=== PATIENT | female | born 1980 | race Caucasian/White ===

== ENCOUNTER 2021-03-31 15:22 | Outpatient (REF) | payer OTHER, SELFPAY ==
--- NOTE | ~2021-03-31 | MM_ITS ---
EXAMINATION: MM SCREENING DIGITAL BREAST TOMOSYNTHESIS, BILATERAL CLINICAL INFORMATION: Screening. Asymptomatic. The lifetime risk of breast cancer based on the Tyrer-Cuzick Model is 13%. COMPARISON: Mammography: 02/13/2020, 12/06/2018 (baseline) TECHNIQUE: Digital breast tomosynthesis is performed in both the craniocaudal and mediolateral oblique views along with computer-aided detection (CAD). Synthesized 2D images are generated from the tomosynthesis. FINDINGS: There are scattered areas of fibroglandular density (ACR BI-RADS breast composition Category b). There are no significant masses, abnormal calcifications, or other abnormalities. Parenchymal pattern is similar to prior studies. The axilla and skin contours are unremarkable. No significant changes. MM/MM tomosynthesis screening BI IMPRESSION: No mammographic evidence of malignancy. ASSESSMENT: BI-RADS 1: Negative RECOMMENDATION: Routine annual mammography screening. This patient's information was entered into a reminder system with a target due date for their next mammogram.
== END 2021-03-31 15:23 | disposition home or self-care (01) ==
LOC: HO.MAMMO 15:22
PROVIDERS: Visit Provider Pediatrics
DX: Z12.31 Encounter for screening mammogram for malignant neoplasm of breast (principal)
CPT/HCPCS: 77063; 77067

== ENCOUNTER 2021-08-29 14:22 | Outpatient (REF) | payer OTHER, SELFPAY ==
[2021-09-01 16:55] LABS: HPV mRNA E6/E7 rflx Not Detected (Not Detected)
== END 2021-08-29 14:23 | disposition home or self-care (01) ==
LOC: HO.LAB 14:22
PROVIDERS: PCP Pediatrics; Visit Provider Obstetrics & Gynecology
DX: Z01.419 Encounter for gynecological examination (general) (routine) without abnormal findings (principal); Z11.51 Encounter for screening for human papillomavirus (HPV)
CPT/HCPCS: 87624; 88142

== ENCOUNTER 2022-04-14 15:18 | Outpatient (REF) | payer OTHER, SELFPAY ==
--- NOTE | ~2022-04-14 | MM_ITS ---
EXAMINATION: MM SCREENING DIGITAL BREAST TOMOSYNTHESIS, BILATERAL CLINICAL INFORMATION: Screening. Asymptomatic. The lifetime risk of breast cancer based on the Tyrer-Cuzick Model is 13%. COMPARISON: Mammography: 03/31/2021 and studies dating back to 12/06/2018. TECHNIQUE: Digital breast tomosynthesis is performed in both the craniocaudal and mediolateral oblique views along with computer-aided detection (CAD). Synthesized 2D images are generated from the tomosynthesis. FINDINGS: The breasts are heterogeneously dense, which may obscure small masses (ACR BI-RADS breast composition Category c). There are no new significant masses, abnormal calcifications, or other abnormalities. About the anterior aspect of the left breast superiorly, there is a circumscribed density with some slight lobulation on craniocaudal view. This may possibly represent intramammary lymph node. However, mass or other etiology is not excluded and ultrasound evaluation of the left breast is recommended. MM/MM tomosynthesis screening BI IMPRESSION: New circumscribed density anterior-superior aspect of the left breast for which ultrasound is recommended. ASSESSMENT: BI-RADS 0: Incomplete - Need Additional Imaging Evaluation. RECOMMENDATION: Targeted ultrasound examination of the left breast.
== END 2022-04-14 15:19 | disposition home or self-care (01) ==
LOC: HO.MAMMO 15:18
PROVIDERS: Absent Provider Obstetrics & Gynecology; PCP Internal Medicine; Visit Provider Internal Medicine
DX: Z12.31 Encounter for screening mammogram for malignant neoplasm of breast (principal)
CPT/HCPCS: 77063; 77067

== ENCOUNTER 2022-05-05 14:19 | Outpatient (REF) | payer OTHER, SELFPAY ==
--- NOTE | ~2022-05-05 | US_ITS ---
EXAMINATION: US DIAGNOSTIC ULTRASOUND BREAST, LEFT CLINICAL INFORMATION: Recall from screening for small oval circumscribed nodule anterior upper left breast. COMPARISON: Mammography 04/14/2022, 03/31/2021, 02/13/2020. TECHNIQUE: Ultrasound of the upper left breast is performed with real-time ambrocio scale imaging and color Doppler. FINDINGS: There is incidental oval circumscribed nodule 11:00 position corresponding to finding on mammography measuring approximately 0.8 x 0.3 cm. There is fine avascular internal septation. Increased through-transmission of sound is demonstrated and no associated color flow. Results are discussed with the patient at time of visit. US/US breast LT limited IMPRESSION: Incidental cyst anterior upper left breast under 1 cm corresponding to recent mammography. ASSESSMENT: BI-RADS 2: Benign RECOMMENDATION: Routine annual mammography screening. This patient's information was entered into a reminder system with a target due date for their next mammogram.
== END 2022-05-05 14:20 | disposition home or self-care (01) ==
LOC: HO.MAMMO 14:19
PROVIDERS: PCP Internal Medicine; Visit Provider Internal Medicine
DX: R92.2 Inconclusive mammogram (principal)
CPT/HCPCS: 76642

== ENCOUNTER → 2022-09-04 14:30 | Outpatient (BNVA) | payer OTHER, SELFPAY | PROVIDERS: PCP Internal Medicine; Visit Provider Obstetrics & Gynecology | DX: Z13.89 Encounter for screening for other disorder (principal) ==

== ENCOUNTER 2022-09-21 15:06 | Outpatient (REF) | payer OTHER, SELFPAY | END 2022-09-21 15:07 | disposition home or self-care (01) | LOC: HO.LNP 15:06 | PROVIDERS: PCP Internal Medicine; Visit Provider Obstetrics & Gynecology | DX: Z13.89 Encounter for screening for other disorder (principal) ==

== ENCOUNTER 2022-09-22 07:49 | Outpatient (REF) | payer OTHER, SELFPAY ==
--- NOTE | ~2022-09-22 | US_ITS ---
EXAMINATION: US OBSTETRICAL ULTRASOUND CLINICAL INFORMATION: Spotting complicating . COMPARISON: None. LMP: 08/05/2022. Gestational age by maternal dates is 6 weeks 6 days. Estimated date of delivery by maternal dates is 05/12/2023. TECHNIQUE: Ultrasound of the maternal pelvis is performed using transabdominal and transvaginal transducers. Transvaginal imaging is performed due to inadequate visualization transabdominally. M-mode Doppler is also performed. FINDINGS: There is a single intrauterine gestational sac seen. There is no associated pole or yolk sac. No subchorionic hematoma or hemorrhage. There are multiple uterine fibroids identified, measuring up to 1.9 x 0.8 x 1.3 cm and the right uterine body. There is a calcification measuring 0.9 cm noted along the endometrium at the uterine body. Mean sac diameter: 0.875 cm (5 weeks 4 days +/- 4 days). MATERNAL ADNEXA: The right maternal ovary measures 2.4 x 1.4 x 1.5 cm. The left maternal ovary measures 3.1 x 1.6 x 2.3 cm. 1.5 cm corpus luteal cyst noted. There is no significant maternal adnexal mass. No maternal pelvic ascites. US/US OB pelvic and transvaginal IMPRESSION: Intrauterine gestational sac with no pole or yolk sac. Mean sac diameter corresponds to a gestational age of 5 weeks 4 days. This appearance could be secondary to the early stage of , though demise/blighted ovum is possible. Close follow-up recommended.
[2022-09-22 09:47] LABS: HCG Quantitative 1041 mIU/mL
== END 2022-09-22 07:50 | disposition home or self-care (01) ==
LOC: HO.US 07:49
PROVIDERS: PCP Internal Medicine; Visit Provider Obstetrics & Gynecology
DX: O26.851 Spotting complicating pregnancy, first trimester (principal)
CPT/HCPCS: 36415; 76801; 76817; 84702; 86850; 86900

== ENCOUNTER 2022-09-22 12:28 | Outpatient (REF) | payer OTHER, SELFPAY ==
[2022-09-22 14:18] LABS: CT PCR NOT DETECTED (Not Detect.); NG PCR NOT DETECTED (Not Detect.)
== END 2022-09-22 12:29 | disposition home or self-care (01) ==
LOC: HO.LNP 12:28
PROVIDERS: Visit Provider Obstetrics & Gynecology
DX: O26.851 Spotting complicating pregnancy, first trimester (principal)
CPT/HCPCS: 0353U

== ENCOUNTER 2022-09-24 09:16 | Outpatient (REF) | payer OTHER, SELFPAY ==
[2022-09-24 10:00] LABS: HCG Quantitative 896 mIU/mL
== END 2022-09-24 09:17 | disposition home or self-care (01) ==
LOC: HO.LAB 09:16
PROVIDERS: Visit Provider Obstetrics & Gynecology
DX: O26.851 Spotting complicating pregnancy, first trimester (principal); O09.521 Supervision of elderly multigravida, first trimester
CPT/HCPCS: 36415; 84702

== ENCOUNTER 2022-09-26 07:52 | Outpatient (REF) | payer OTHER, SELFPAY ==
[2022-09-26 09:13] LABS: HCG Quantitative 464 mIU/mL
== END 2022-09-26 07:53 | disposition home or self-care (01) ==
LOC: HO.LAB 07:52
PROVIDERS: PCP Internal Medicine; Visit Provider Obstetrics & Gynecology
DX: O26.851 Spotting complicating pregnancy, first trimester (principal)
CPT/HCPCS: 36415; 84702

== ENCOUNTER 2022-09-28 07:58 | Outpatient (REF) | payer OTHER, SELFPAY ==
--- NOTE | ~2022-09-28 | US_ITS ---
EXAMINATION: US OBSTETRICAL CLINICAL INFORMATION: Complete or unspecified spontaneous without complication. COMPARISON: None. LMP: 08/05/2022. Gestational age by maternal dates is unknown. Estimated date of delivery by maternal dates is unknown. TECHNIQUE: Transabdominal and transvaginal imaging of pelvis is performed. FINDINGS: The uterus is anteverted and anteflexed measuring 9.2 cm in length, 5.0 cm in AP and 7.3 cm in transverse dimension. Endometrial thickness is 0.9 cm. Scattered calcifications seen within the endometrium measuring 0.6 x 0.6 x 0.7 cm. Minimal fluid seen within the endometrial canal. There are multiple hypoechoic areas consistent with fibroids. They measure as follows: 1. Right anterior 1.2 x 1.1 x 1.6 cm. Previously measured 1.2 x 1.1 x 1.6 cm. 2. Lesion in the posterior upper body of uterus measures 1.3 x 1.4 x 1.3 cm. Previously measured 1.9 x 0.8 x 1.3 cm. 3. Lesion in the left mid body of uterus measures 1.5 x 1.2 x 1.4 cm. Previously measured 1.5 x 1.1 x 1.5 cm. 4. Lesion in the left lower body of uterus measures 1.1 x 0.8 x 1.0 cm. Previously it measured 1.4 x 1.3 x 1.5 cm. The right ovary measures 2.1 x 1.2 x 1.5 cm and volume 2.0 mL. It appears unremarkable. Previously the right ovary measured 2.4 x 1.4 x 1.5 cm. Left ovary measures 2.7 x 1.9 x 1.8 cm and volume 4.8 mL. There is anechoic corpus luteal cyst measuring 1.3 x 1.3 x 1.20 cm. There is a small amount of free fluid in cul-de-sac. US/US OB pelvic and transvaginal IMPRESSION: Multiple uterine fibroids as described above with no major change. Likely corpus luteal cyst left ovary. The right ovary is unremarkable. There is minimal fluid and calcifications in the endometrium.
[2022-09-28 08:53] LABS: HCG Quantitative 91 mIU/mL
== END 2022-09-28 07:59 | disposition home or self-care (01) ==
LOC: HO.US 07:58
PROVIDERS: PCP Internal Medicine; Visit Provider Obstetrics & Gynecology
DX: O03.9 Complete or unspecified spontaneous abortion without complication (principal)
CPT/HCPCS: 36415; 76801; 76817; 84702

== ENCOUNTER 2022-10-10 07:46 | Outpatient (REF) | payer OTHER, SELFPAY ==
[2022-10-10 08:06] LABS: MANUAL DIFF FLAG NO
[2022-10-10 09:20] LABS: Basophils Percent Auto 0.3 % (0-2); Eosinophils Absolute Auto 0.2 X10*3/uL (0.0-0.4); Eosinophils Percent Auto 2.7 % (0-4); Hematocrit 42.8 % (37.0-47.0); Hemoglobin 14.1 g/dl (12.0-16.0); Imm Gran Abs Auto 0.02 X10*3/uL (0.00-0.03); Imm Gran Pct Auto 0.3 % (0.0-0.4); Lymphocytes Absolute Auto 1.8 X10*3/uL (1.2-4.9); Lymphocytes Percent Auto 26.7 % (20-40); Mean Corpuscular HGB Conc 32.9 g/dl (31.0-35.0); Mean Corpuscular Hemoglobin 29.9 pg (27.0-33.0); Mean Corpuscular Volume 90.9 fL (80.0-98.0); Mean Platelet Volume 9.2 fL (9.4-12.3); Monocytes Absolute Auto 0.5 X10*3/uL (0.1-1.2); Monocytes Percent Auto 7.4 % (2-11); Neutrophils Absolute Auto 4.2 x10*3/uL (2.0-8.3); Neutrophils Percent Auto 62.6 % (45-73); Platelet Count 452 X10*3/uL (160-400); Red Blood Count 4.71 X10*6/uL (4.20-5.50); Red Cell Distribution Width 12.5 % (11.0-16.0); White Blood Count 6.7 X10*3/uL (4.8-10.8)
[2022-10-10 10:20] LABS: HCG Quantitative < 2 mIU/mL
[2022-10-10 10:24] LABS: Alanine Aminotransferase 16 U/L (0-31); Albumin Level 3.8 g/dL (3.5-5.0); Alkaline Phosphatase 87 U/L (39-117); Anion Gap 13 (12-20); Aspartate Amino Transferase 17 U/L (5-31); Bilirubin Total 0.6 mg/dL (0.0-1.0); Blood Urea Nitrogen 10 mg/dL (9-16); Calcium 9.2 mg/dL (8.4-10.2); Carbon Dioxide 23 mmol/L (22-29); Chloride 109 mmol/L (96-108); Cholesterol 196 mg/dL; Estimated Glomerular Filt Rate > 60; Glucose Fasting 89 mg/dL (60-99); HDL Cholesterol 59 mg/dL; LDL Cholesterol Calculated 125 mg/dl; Potassium 5.3 mmol/L (3.3-5.1); Sodium 140 mmol/L (135-145); Total Protein 6.7 g/dL (6.5-8.0); Triglycerides 63 mg/dL
[2022-10-10 10:45] LABS: Thyroid Stimulating Hormone 1.49 uIU/mL (0.32-4.0)
== END 2022-10-10 07:47 | disposition home or self-care (01) ==
LOC: HO.LAB 07:46
PROVIDERS: PCP Internal Medicine; Visit Provider Obstetrics & Gynecology
DX: O03.9 Complete or unspecified spontaneous abortion without complication (principal); E78.5 Hyperlipidemia, unspecified; D25.9 Leiomyoma of uterus, unspecified; E66.01 Morbid (severe) obesity due to excess calories
CPT/HCPCS: 36415; 80053; 80061; 84443; 84702; 85025

== ENCOUNTER 2022-10-27 08:05 | Outpatient (REF) | payer OTHER, SELFPAY ==
[2022-10-27 09:34] LABS: Alanine Aminotransferase 15 U/L (0-31); Albumin Level 3.9 g/dL (3.5-5.0); Alkaline Phosphatase 86 U/L (39-117); Anion Gap 12 (12-20); Aspartate Amino Transferase 16 U/L (5-31); Bilirubin Total 0.5 mg/dL (0.0-1.0); Blood Urea Nitrogen 10 mg/dL (9-16); Calcium 9.1 mg/dL (8.4-10.2); Carbon Dioxide 23 mmol/L (22-29); Chloride 107 mmol/L (96-108); Estimated Glomerular Filt Rate > 60; Glucose Random 103 mg/dL (60-115); Potassium 4.7 mmol/L (3.3-5.1); Sodium 137 mmol/L (135-145); Total Protein 6.9 g/dL (6.5-8.0)
== END 2022-10-27 08:06 | disposition home or self-care (01) ==
LOC: HO.LAB 08:05
PROVIDERS: PCP Internal Medicine; Visit Provider Internal Medicine
DX: E87.5 Hyperkalemia (principal)
CPT/HCPCS: 36415; 80053

== ENCOUNTER 2023-05-14 16:03 | Outpatient (REF) | payer OTHER, SELFPAY ==
--- NOTE | ~2023-05-14 | MM_ITS ---
EXAMINATION: MM SCREENING DIGITAL BREAST TOMOSYNTHESIS, BILATERAL CLINICAL INFORMATION: Screening. Asymptomatic. COMPARISON: Mammography: 04/14/2022, 03/31/2021, 02/13/2020. TECHNIQUE: Digital breast tomosynthesis is performed in both the craniocaudal and mediolateral oblique views along with computer-aided detection (CAD). Synthesized 2D images are generated from the tomosynthesis. FINDINGS: There are scattered areas of fibroglandular density (ACR BI-RADS breast composition Category b). There are no suspicious masses, suspicious grouped calcifications, or areas of architectural distortion in either breast. The parenchymal pattern is stable from prior exams. There are no skin changes. There are no axillary changes. MM/MM tomosynthesis screening BI IMPRESSION: No mammographic evidence of malignancy. ASSESSMENT: BI-RADS BI-RADS 1 - Negative RECOMMENDATION: Routine annual mammography screening. 1 year F/U This examination should not preclude the clinical evaluation of a suspicious palpable abnormality. This patient's information was entered into a reminder system with a target due date for their next mammogram.
== END 2023-05-14 16:04 | disposition home or self-care (01) ==
LOC: HO.MAMMO 16:03
PROVIDERS: PCP Internal Medicine; Visit Provider Internal Medicine
DX: Z12.31 Encounter for screening mammogram for malignant neoplasm of breast (principal)
CPT/HCPCS: 77063; 77067

== ENCOUNTER → 2023-05-14 16:15 | Outpatient (BNV) | payer OTHER, SELFPAY | PROVIDERS: PCP Internal Medicine; Visit Provider Radiology Diagnostic Radiology | DX: Z12.31 Encounter for screening mammogram for malignant neoplasm of breast (principal) | CPT/HCPCS: 77063; 77067 ==

== ENCOUNTER 2023-07-30 14:35 | Outpatient (REF) | payer OTHER, SELFPAY ==
--- NOTE | ~2023-07-30 | US_ITS ---
EXAMINATION: US OBSTETRICAL ULTRASOUND CLINICAL INFORMATION: Encounter for supervision of normal . COMPARISON: None available. LMP: 06/10/2023. Gestational age by maternal dates is 7 weeks and 1 day. Estimated date of delivery by maternal dates is 03/16/2024. TECHNIQUE: Transabdominal and transvaginal imaging of pelvis is performed. FINDINGS: There is a single intrauterine gestational sac with visible yolk sac, embryo/fetus, and cardiac activity. There is no significant subchorionic hemorrhage or hematoma. HR: 147 beats per minute. CRL (crown rump length): 1.22 cm (7 weeks and 3 days +/- 4 days). NAZIA (estimated date of delivery): 03/14/2024 +/- 4 days. MATERNAL ADNEXA: The right maternal ovary measures 3.3 x 2.3 x 2.8 cm. There is anechoic corpus luteal cyst measuring 1.4 x 1.3 x 1.5 cm. The left maternal ovary measures 2.4 x 1.7 x 1.7 cm. There is no significant maternal adnexal mass. There is a trace free fluid in the cervix. US/US OB <= 14 weeks fetus IMPRESSION: 1. Single intrauterine gestation with ultrasound gestational age of 7 weeks and 3 days +/- 4 days. 2. Estimated date of delivery is 03/14/2024 +/- 4 days. 3. There is a trace free fluid in the cervix
[2023-07-30 15:33] LABS: HCG Quantitative 87666 mIU/mL
== END 2023-07-30 14:36 | disposition home or self-care (01) ==
LOC: HO.US 14:35
PROVIDERS: PCP Internal Medicine; Visit Provider Obstetrics & Gynecology
DX: Z34.91 Encounter for supervision of normal pregnancy, unspecified, first trimester (principal); Z3A.01 Less than 8 weeks gestation of pregnancy
CPT/HCPCS: 36415; 76801; 84702

== ENCOUNTER 2023-07-31 09:37 | Outpatient (AMB) | payer OTHER, SELFPAY ==
[2023-07-31 10:01] VITALS: BP 136/80; BMI 39.9
--- NOTE | 2023-07-31 10:01 | A.OFFVIS_ITS ---
Intake Vital Signs 07/31/23 10:01 Height 5 ft 5 in Weight 240 lb BMI 39.9 BP 136/80 Intake Visit Reasons: HCG follow up Business Account Specialist Required: No Information Interpreted: non-clinical & clinical Lining Cleaner: Lining Cleaner Present (Kary) Allergies No Known Allergies Allergy (Verified 07/31/23 10:02) Post menopausal: No Patient : Yes HPI HPI Comments History of Present Illness Details Presenting for follow-up. The patient had a positive urine test few weeks ago and had an episode of bleeding 2 days ago that resolved. On vitamin 1 tablet p.o. q.d. Yesterday. HCG 87,666, blood type O positive ultrasound done yesterday showed the following: There is a single intrauterine gestational sac with visible yolk sac, embryo/fetus, and cardiac activity. There is no significant subchorionic hemorrhage or hematoma. HR: 147 beats per minute. CRL (crown rump length): 1.22 cm (7 weeks and 3 days +/- 4 days). NAZIA (estimated date of delivery): 03/14/2024 +/- 4 days. MATERNAL ADNEXA: The right maternal ovary measures 3.3 x 2.3 x 2.8 cm. There is anechoic corpus luteal cyst measuring 1.4 x 1.3 x 1.5 cm. The left maternal ovary measures 2.4 x 1.7 x 1.7 cm. There is no significant maternal adnexal mass. There is a trace free fluid in the cervix. [facility] Surgical History History of dental surgery Family History Mother Endometrial cancer Diabetes Father Diabetes Hypertension Social History Housing: House Alcohol intake: current Alcohol intake frequency: holidays/special occasions only Alcohol type: wine and other Patient Tobacco Use Status: Never used Tobacco e-Cigarette/Vaping Use: Never Used Second Hand Smoke Exposure: No Patient : Yes service: No Current occupational status: employed Current occupational exposures/hazards: No Cognitive needs: No Hearing needs: No Vision needs: Yes Female Reproductive History Menstrual Age of Menarche: 10 control method: none Review of Systems Const All systems reviewed & are unremarkable except as noted in HPI and below Reports as per HPI and Reports no additional complaints GI Reports no additional complaints Reports no additional complaints Physical Exam Vital Signs: Last Vital Signs BP 136/80 07/31/23 10:01 BMI result Body Mass Index 39.9 General: Yes no CVA tenderness External Female Exam: normal external appearance and normal appearance of the urethra Speculum Exam - Vagina: normal appearance of the vagina, normal palpation, no lesions and no masses Speculum Exam - Cervix: normal appearance of the cervix, normal palpation, no lesions, no masses and nontender Bimanual exam- vagina & uterus: normal bimanual exam, normal palpation, uterine size normal, normal palpation, uterine shape normal, No Cervical tenderness present and non-tender Bimanual Exam- Adnexa, other: normal adnexae Back/Spine/Pelvis Back: no CVA tenderness Assessment & Plan Assessment & Plan (1) Early stage of : Code(s): Z34.90 - Encounter for supervision of normal , unspecified, unspecified trimester Plan: Discussed with the patient the results of ultrasound and hCG. SAB warnings given to patient, she is to call or go to emergency room in case of pelvic aircraft engineer mping and or bleeding/spotting. vitamin 1 tablet p.o. q.d. Instructions given patient to keep her appointment [facility] OBGYN given high- risk status. All questions answered, the patient verbalized understanding. Coding Level of Care Code Est Pt Level 3 (18739) Diagnoses Early stage of Z34.90
== END 2023-07-31 10:48 | disposition home or self-care (01) ==
LOC: HO.HWS 09:37
PROVIDERS: PCP Internal Medicine; Visit Provider Obstetrics & Gynecology
DX: Z34.90 Encounter for supervision of normal pregnancy, unspecified, unspecified trimester (principal)
CPT/HCPCS: 99213

== ENCOUNTER 2023-07-31 09:37 | Outpatient (REF) | payer OTHER, SELFPAY ==
[2023-07-31 17:34] LABS: CT PCR NOT DETECTED (Not Detect.); NG PCR NOT DETECTED (Not Detect.)
== END 2023-07-31 09:38 | disposition home or self-care (01) ==
LOC: HO.LNP 09:37
PROVIDERS: PCP Internal Medicine; Visit Provider Obstetrics & Gynecology
DX: O26.851 Spotting complicating pregnancy, first trimester (principal); Z20.2 Contact with and (suspected) exposure to infections with a predominantly sexual mode of transmission
CPT/HCPCS: 0353U

== ENCOUNTER 2023-12-17 14:22 | Outpatient (AMB) | payer OTHER, SELFPAY ==
--- NOTE | 2023-12-17 14:23 | MHC.OFFVIS ---
Vital Signs 12/17/23 14:24 Height 5 ft 5 in Weight 246 lb BMI 40.9 BP 114/70 Intake Visit Reasons: Annual Access Analyst: Access Analyst Present (Kenia) Allergies No Known Allergies Allergy (Verified 12/17/23 14:24) Is last menstrual period known: Yes Last menstrual period: 11/29/23 HPI Comments Details: Presenting for annual exam. No complaints. Last Pap/HPV was negative in 09/17 Last Mammogram was BI-RADS 1 in 05/19 No previous screening mammogram PFS Surgical History History of dental surgery Family History Mother Endometrial cancer Diabetes Father Diabetes Hypertension Maternal Grandmother Colon cancer Social History Housing: House Alcohol intake: current Alcohol intake frequency: holidays/special occasions only Alcohol type: wine and other Patient Tobacco Use Status: Never used Tobacco e-Cigarette/Vaping Use: Never Used Second Hand Smoke Exposure: No service: No Current occupational status: employed Current occupational exposures/hazards: No Cognitive needs: No Hearing needs: No Vision needs: Yes Female Reproductive History Menstrual Age of Menarche: 10 Duration of menses: 6-7 days Date of last menstrual period: 11/29/23 Total pregnancies: 2 Number of Living Children: 0 Ab spontaneous: 2 Date of last pap smear: 08/29/21 (neg pap and hpv) Date of Mammogram: 05/14/23 Review of Systems Const All systems reviewed & are unremarkable except as noted in HPI and below Card Reports as per HPI Resp Reports as per HPI GI Reports as per HPI and Reports no additional complaints Reports as per HPI Physical Exam Vital Signs: Last Vital Signs BP 114/70 12/17/23 14:24 BMI result Body Mass Index 40.9 Const General: cooperative, healthy appearing and comfortable Chest Chest palpation & inspection: normal inspection of the chest and normal palpation of entire chest wall Breast/axilla inspection: normal inspection of the breasts and normal inspection of the axillae Breast/axilla palpation: normal palpation of the breasts, normal palpation of the axillae and no axillary lymphadenopathy Resp Effort & Inspection: normal respiratory effort Auscultation: clear to auscultation bilaterally Percussion: percussion normal Cardio Palpation: normal PMI Rate: regular rate Rhythm: regular rhythm Heart sounds: no murmurs and no rubs Peripheral pulses: Peripheral pulses 2+ throughout GI Inspection: Yes normal to inspection Palpation (GI): Soft to palpation, nontender, no guarding, not rigid and No hepatosplenomegaly present Percussion: Yes normal to percussion Auscultation: normal bowel sounds Rectal Exam - Female: deferred General: Yes bladder normal to palpation External Female Exam: No lesion Speculum Exam - Vagina: normal appearance of the vagina, normal palpation, normal vaginal discharge and not erythematous Speculum Exam - Cervix: normal appearance of the cervix and normal palpation Bimanual exam- vagina & uterus: normal bimanual exam, normal palpation, uterine size normal, bladder normal to palpation, consistency normal and normal palpation Bimanual Exam- Adnexa, other: normal adnexae, no masses and no tenderness Assessment & Plan Assessment & Plan (1) Well woman exam: Code(s): Z01.419 - Encounter for gynecological examination (general) (routine) without abnormal findings Category: Medical Plan: Cotesting not indicated this year. Instructions given the patient to schedule next screening Mammogram in 05/20. Counseled the patient about the recommended dietary allowance of 1000 mg of Calcium & 600 IU of vitamin D. The patient was instructed to perform monthly self-breast exams and to schedule an annual exam in a year; All questions answered and the patient verbalized understanding. Instructed the patient to schedule annual exam in a year Orders: Referrals Gastroenterology Referral Z12.11 - Encounter for screening for malignant neoplasm of colon
[2023-12-17 14:24] VITALS: BP 114/70; BMI 40.9
--- OUTSIDE RECORDS SUMMARY | 2023-12-17 14:24 | XMS_ITS | Continuity of Care Document ---
Author Organization [facility] Address [address] [place] [id number]- Care Team Providers Care Hydrostatic Tester Name Role Phone Not on Staff, PCP Primary Care Physician Unavail able Encounter [facility] Date(s): 07/18/23 - 08/17/[address] [address]- Allergies, Adverse Reactions, Alerts No Known Allergies Immunizations Given and Recorded Vaccine Date Status Refusal Reason Flu Vaccine 06/20/23 Recorded SARS-CoV-2 (COVID-19) mRNA BNT-162b2 vac 07/15/21 Recorded SARS-CoV-2 (COVID-19) mRNA BNT-162b2 vac 09/04/20 Recorded SARS-CoV-2 (COVID-19) mRNA BNT-162b2 vac 08/14/20 Recorded Medications PNV By Mouth, Daily, 0 Refills, Maintenance, 08/06/23 10:45:00 EST, Partial fill upon patient request if the prescription is for a schedule II opioid drug. Start Date: 08/06/23 Status: Ordered Social History Social History Type Response Smoking Status Never (less than 100 in lifetime) entered on: 08/06/23 Sex Patient Care team information Care Team Personnel Name: Not on Staff, PCP Position: [facility] Physician (General Medicine) Member Role: PCP
--- OUTSIDE RECORDS SUMMARY | 2023-12-17 14:24 | XMS_ITS | Continuity of Care Document ---
Author Organization [facility] Address [address] [place] [id number]- Care Team Providers Care Cable Tower Operator Name Role Phone Not on Staff, PCP Primary Care Physician Unavail able Encounter [facility] [place] Date(s): 09/20/23 - 10/20/[address] [address]- Allergies, Adverse Reactions, Alerts No Known Allergies Immunizations Given and Recorded Vaccine Date Status Refusal Reason Flu Vaccine 06/20/23 Recorded SARS-CoV-2 (COVID-19) mRNA BNT-162b2 vac 07/15/21 Recorded SARS-CoV-2 (COVID-19) mRNA BNT-162b2 vac 09/04/20 Recorded SARS-CoV-2 (COVID-19) mRNA BNT-162b2 vac 08/14/20 Recorded Medications miSOPROStol 200 mcg oral tablet See Instructions, place 2 tabs between cheek and gums on EACH side, let dissolve for 30min then swallow the rest with water, # 4 tablet, 1 Refills, Maintenance, 08/31/23 3:21:00 EST, [facility], Partial fill upon patient request if the prescription... Start Date: 08/31/23 Status: Ordered PNV By Mouth, Daily, 0 Refills, Maintenance, 08/06/23 10:45:00 EST, Partial fill upon patient request if the prescription is for a schedule II opioid drug. Start Date: 08/06/23 Status: Ordered Social History Social History Type Response Smoking Status Never (less than 100 in lifetime) entered on: 08/06/23 Sex Patient Care team information Care Team Personnel Name: Not on Staff, PCP Position: S Physician (General Medicine) Member Role: PCP Care Team Related Persons Name: MIRELA CRONIN Address: home [address] [place] [address]
--- OUTSIDE RECORDS SUMMARY | 2023-12-17 14:24 | XMS_ITS | Continuity of Care Document ---
Author Organization [facility] Address [address] [place] [id number]- Care Team Providers Care Javascript Web Developer Name Role Phone Not on Staff, PCP Primary Care Physician Unavail able Encounter [facility] [place] Date(s): 08/10/23 - 09/09/[address] [address]- Allergies, Adverse Reactions, Alerts No Known Allergies [...] tablet, 1 Refills, Maintenance, 08/31/23 3:21:00 EST, [facility], Partial fill upon patient request if [...] Related Persons Name: MIRELA CRONIN Address: home [address] [place] [id number]
--- OUTSIDE RECORDS SUMMARY | 2023-12-17 14:24 | XMS_ITS | Continuity of Care Document ---
Author Organization [facility] Address [address] [place] [id number]- Care Team Providers Care Hat Checker Name Role Phone Not on Staff, PCP Primary Care Physician Unavail able Encounter [facility] [place] Date(s): 09/26/23 - 10/26/[address] [address]- Attending Physician: Lj Herzog Admitting Physician: AdmtrLj Referring Physician: Admtr, Ar8 Allergies, Adverse Reactions, Alerts No Known Allergies [...] tablet, 1 Refills, Maintenance, 08/31/23 3:21:00 EST, [facility] Pharm[facility], Partial fill upon patient request if [...] Role: PCP Care Team Related Persons Name: ROSEANNE MIRELA Address: [address] [address]
--- OUTSIDE RECORDS SUMMARY | 2023-12-17 14:24 | XMS_ITS | Continuity of Care Document ---
Author Organization [facility] ter Address [address] [place] [id number] Care Team Providers Care Physical Science Technician Name Role Phone Not on Staff, PCP Primary Care Physician Unavail able Encounter [facility] Date(s): 08/30/23 - 08/31/[address] [address] Discharge Disposition: A-D/C Home Attending Physician: Roddy SRTEETER [OB], Ioana Lopez Admitting Physician: Roddy STREETER [OB], Ioana Lopez Referring Physician: Roddy STREETER [OB], Ioana Lopez Allergies, Adverse Reactions, Alerts No Known Allergies Immunizations Given and Recorded Vaccine Date Status Refusal Reason Flu Vaccine 06/20/23 Recorded SARS-CoV-2 (COVID-19) mRNA BNT-162b2 vac 07/15/21 Recorded SARS-CoV-2 (COVID-19) mRNA BNT-162b2 vac 09/04/20 Recorded SARS-CoV-2 (COVID-19) mRNA BNT-162b2 vac 08/14/20 Recorded Medications ibuprofen 800 mg oral tablet 800 mg, 1, tablet, By Mouth, Every 8 hours, for 7 days, # 50 tablet, Refills 0, Tot. Refills 0, Acute 09/07/23 3:21:00 EST, 08/31/23 3:21:00 EST, Route to Pharmacy Electronically, [facility], Partial fill upon patient request if the prescription is... Start Date: 08/31/23 Stop Date: 09/07/23 Status: Ordered miSOPROStol 200 mcg oral tablet See Instructions, place 2 tabs between cheek and gums on EACH side, let dissolve for 30min then swallow the rest with water, # 4 tablet, 1 Refills, Maintenance, 08/31/23 3:21:00 EST, [facility], Partial fill upon patient request if the prescription... Start Date: 08/31/23 Status: Ordered ondansetron 4 mg oral tablet 1 tablet = 4 mg, By Mouth, Every 8 hours, for 3 days, # 12 tablet, 0 Refills, Acute 09/03/23 3:21:00 EST, 08/31/23 3:21:00 EST, Tablet, [facility], Partial fill upon patient request if the prescription is for a schedule II opioid drug., 163, cm, ... Start Date: 08/31/23 Stop Date: 09/03/23 Status: Ordered PNV By Mouth, Daily, 0 Refills, Maintenance, 08/06/23 10:45:00 EST, Partial fill upon patient request if the prescription is for a schedule II opioid drug. Start Date: 08/06/23 Status: Ordered Results Radiology Reports * Exam Date Time Procedure Performing Provider Status 08/30/23 10:31 PM US Uterus Transvaginal Lion Ptaterson; Auth (Verified) Notes: (US Uterus Transvaginal) Reason For Exam: ?SAB;Bleeding RESULT: US Uterus Transvaginal US Transabd 1st Trimester Only, US Uterus Transvaginal Reason: Bleeding; ?SAB; Clinical Question(s): Demise; Order Comment: US Uterus Transvaginal Prep COMPARISON: None available. TECHNIQUE: Transabdominal and transvaginal ultrasound with grayscale and color Doppler analysis. FINDINGS: Last menstrual period (LMP): 06/10/2023. Gestational age (GA) by LMP: 11w4d. UTERUS AND GESTATIONAL STRUCTURES: An irregular shaped gestational sac is seen in the endometrial cavity measuring 6.2 x 3.4 x 3.8 cm.It is located in the lower uterine segment. [place]-rump length (CRL): 1.6 cm. Ultrasound age of 8w0d. No heart rate or cardiac activity isidentified. Uterus: 14.2 x 6.3 x 8.2 cm, volume 381.8 cc. There is a 2.9 x 2.3 x 2.6 cm intramural fibroid in the posterior uterine body. No abnormalities of the cervix. Cervix is not dilated. RIGHT OVARY: Size: 2.4 x 1.6 x 2.0 cm, volume 4.1 cc. Morphology: Normal echotexture. No pathologic cysts or mass. Normal color Doppler appearance. LEFT OVARY: Size: 2.2 x 1.4 x 2.5 cm, volume 3.9 cc. Morphology: Normal echotexture. No pathologic cysts or mass. Normal color Doppler appearance. FREE FLUID: None. IMPRESSION: 1. Findings consistent with demise with irregular shaped gestational sac located in the endometrial cavity in the lower uterine segment. 2. A 2.9 cm uterine fibroid. The impression above was relayed to Yolanda Mahoney CNM by Dr. Aggie Mcginnis via [employer] with acknowledgement received on 08/30/2023 at 10:35 PM. WSN: [id number] Ordering Physician: Yolanda Mahoney Dictated By: Aggie Mcginnis MD Dictated Date/Time: 08/30/23 10:38 p Reviewed By: Aggie Mcginnis MD Signed By: Aggie Mcginnis MD Signed Date/Time: 08/30/23 10:38 pm Transcribed By: MARLIN Transcribed Date/Time: 08/30/23 10:28 pm * Exam Date Time Procedure Performing Provider Status 08/30/23 10:31 PM US Transab d 1st Trimester Only Lion Martin; Auth (Verified) Notes: (US Transabd 1st Trimester Only) Reason For Exam: ?SAB;Bleeding RESULT: US Transabd 1st Trimester Only US Transabd 1st Trimester Only, US Uterus Transvaginal Reason: Bleeding; ?SAB; Clinical Question(s): Demise; Order Comment: US Uterus Transvaginal Prep COMPARISON: None available. TECHNIQUE: Transabdominal and transvaginal ultrasound with grayscale and color Doppler analysis. FINDINGS: Last menstrual period (LMP): 06/10/2023. Gestational age (GA) by LMP: 11w4d. UTERUS AND GESTATIONAL STRUCTURES: An irregular shaped gestational sac is seen in the endometrial cavity measuring 6.2 x 3.4 x 3.8 cm.It is located in the lower uterine segment. [place]-rump length (CRL): 1.6 cm. Ultrasound age of 8w0d. No heart rate or cardiac activity isidentified. Uterus: 14.2 x 6.3 x 8.2 cm, volume 381.8 cc. There is a 2.9 x 2.3 x 2.6 cm intramural fibroid in the posterior uterine body. No abnormalities of the cervix. Cervix is not dilated. RIGHT OVARY: Size: 2.4 x 1.6 x 2.0 cm, volume 4.1 cc. Morphology: Normal echotexture. No pathologic cysts or mass. Normal color Doppler appearance. LEFT OVARY: Size: 2.2 x 1.4 x 2.5 cm, volume 3.9 cc. Morphology: Normal echotexture. No pathologic cysts or mass. Normal color Doppler appearance. FREE FLUID: None. IMPRESSION: 1. Findings consistent with demise with irregular shaped gestational sac located in the endometrial cavity in the lower uterine segment. 2. A 2.9 cm uterine fibroid. The impression above was relayed to Yolanda Mahoney CNM by Dr. Aggie Mcginnis via [employer] with acknowledgement received on 08/30/2023 at 10:35 PM. WSN: [id number] Ordering Physician: Yolanda Mahoney Dictated By: Aggie Mcginnis MD Dictated Date/Time: 08/30/23 10:38 p Reviewed By: Aggie Mcginnis MD Signed By: Aggie Mcginnis MD Signed Date/Time: 08/30/23 10:38 pm Transcribed By: MARLIN Transcribed Date/Time: 08/30/23 10:28 pm Vital Signs Most recent to oldest [Reference Range]: 1 2 Weight 111.2 kg (08/30/23 11:30 PM) Oxygen Saturation [94-100 %] 100 % (08/30/23 7:25 PM) Blood Pressure [90-138/55-84 mm Hg] 142/ 82mm Hg *H* (08/30/23 7:25 PM) Respiratory Rate [16-30 br/min] 20 br/mi n (08/30/23 7:25 PM) Temperature [96.8-100.4 DegF] 98.2 DegF (08/30/23 7:25 PM) Temperature Route Oral (08/30/23 7:25 PM) Dry Weight 111.2 kg (08/30/23 11:30 PM) 111.5 kg (08/30/23 7:25 PM) Weight Obtained Via Standing scale (08/30/23 11:30 PM) Dry Weight Obtained Via Standing scale (08/30/23 11:30 PM) Standing scale (08/30/23 7:25 PM) Social History Social History Type Response Smoking Status Never (less than 100 in lifetime) entered on: 08/06/23 Sex Note * Chanell Zepeda RN: PERFORM Event Display: Discharge/Transfer Note Hospital Authored Date: [id number] Nursing Discharge Note Entered On: 08/31/2023 5:22 EST Performed On: 08/31/2023 5:22 EST by Chanell Zepeda RN Nursing Discharge Note 2 Discharge Time : 08/31/2023 5:22 EST Discharge Level of Care at Discharge : Home/Prison/Foster Care Patient Left Unit Via : Ambulatory Patient Accompanied Off Unit with : Significant other DC Instructions Provided & Signed by Pt : Yes Patient Understands D/C Instructions : Yes Patient Instructions Discharge Signed : Yes Did Pt have Specialty Bed or Wound Vac : No Chanell Zepeda RN - 08/31/2023 5:22 EST * Event Display: Discharge/Transfer Note Hospital Authored Date: [id number] * Chanell Zepeda RN: PERFORM Event Display: Patient Education/Instruction Authored Date: [id number] Inpatient Adult Discharge Instructions [address] [id number] Name: VAUGHN CRONIN : 1980 Visit: 08/30/2023 18:51:00 Current Date: 08/31/2023 05:16 Account: [id number] Inpatient Adult Discharge Instructions We would like to thank you for allowing us to assist you with your healthcare needs. The following includes patient education materials and information regarding your injury/illness. Our entire staffstrives to provide an excellent experience for our patients and their families. PLEASE ENSURE YOU FOLLOW-UP PER THE INSTRUCTIONS BELOW! ?? YOUR OPINION IS IMPORTANT TO US! Please complete the survey you may receive by mail or email. Your feedback will be used to make improvements to the healthcare experiences of our patients and their families. Surveys are administered by [employer] ?? If further treatment with your primary care physician or another doctor is recommended, it is important for you to keep the appointment. Call your primary care physician or return to the Emergency Department immediately if your condition worsens, fails to improve, or new symptoms develop. If you need to find a doctor, you can call [facility] Link for a referral at [phone] or toll free at [phone]) or log in to [email or web address].. ?? [facility], in keeping with [facility] guidance, no longer requires face masks for staff, patientsor visitors in most situations. Similiar to time spent indoors at other locations, there is the chance that you were exposed to repiratory viruses during your time with us (such as flu or COVID-19). If you develop symptoms concerning for a viral respiratory infection, please seek testing (and treatment if indicated) from your medical provider or home test kit. ?? You can view and manage your care through the patient portal or by using a health care jill of your choosing. [facility] is a website that allows you to securely view your medical information including your hospital discharge summary, office visit summaries, medications and follow-up visits. You can also request appointments, renew medications, and request access to your medical information using a health care jill of your choosing, or just ask a question. You can enroll at [email or web address] or register during your next office visit. You have been discharged from [facility], Patient Care Unit: [id number]. If you have any questions regarding these instructions after you leave, please call us and we will be happy to assist you. [facility] Your Care Team Attending Physician Roddy STREETER [OB], Ioana Lopez Your Diagnosis 11 weeks gestation of First trimester bleeding Tests Performed Below is a partial list of the tests performed during your hospitalization. You may have had other tests and procedures not included in this list. Please discuss all test results with your provider. US Transabd 1st Trimester Only US Uterus Transvaginal Primary Care Provider Not on Staff, PCP Advance Directive Health Care Proxy on File No Discharge Vitals Temperature: 98.2 DegF Weight: 111.2 kg Respiratory Rate: 20 br/min ?? Systolic Blood Pressure:??142 mm Hg??High ?? Diastolic Blood Pressure: 82 mm Hg ?? Oxygen Saturation: 100 % ?? Studies Pending All tests and labs ordered during this hospital stay have been completed unless listed below. Please discuss all pending results with your provider listed above in these instructions. ?? No incomplete studies found What to do next Instructions From Your Doctor Discharge Orders You Need to Schedule the Following Appointments Follow Up with??[facility] [phone] Discharge Medications VAUGHN CRONIN :1980 Visit Date:08/30/2023 Medications: Please continue your medications until treatment is completed or stopped by your provider. Medications not listed below should be discontinued. Discuss any questions related to medications with your provider. What How Much When Instructions Next Dose New Ibuprofen (ibuprofen 800 mg oral tablet) 1 tab(s) Oral Every 8 hours Duration: 7 Days Pickup at [facility] New Misoprostol (miSOPROStol 200 mcg oral tablet) See instructions Refills: 1 place 2 tabs between cheek and gums on EACH side, let dissolve for 30min then swallow the rest withwater ?? Pickup at [facility] New Ondansetron (ondansetron 4 mg oral tablet) 1 tab(s) Oral Every 8 hours Duration: 3 Days Pickup at [facility] Unchanged Multivitamin, (PNV ) Oral Daily Pharmacy Information [facility] Pharmacy: [address] [place] [address] [phone] Test Results Below is a partial list of the most recent Laboratory test results done prior to this discharge. You may have had other tests and procedures not included in this list. Please discuss all test resultswith your provider. Allergies (NKA means No Known Allergies) NKA Problems Active Problems??(1) ?? Education Materials Below is the list of Educational Leaflet Providered with your Discharge Instructions. Understanding Miscarriage: Recovery?? Understanding Miscarriage: Possible Causes?? Understanding Miscarriage: Emotions?? Understanding Miscarriage: Trying Again?? Missed Miscarriage?? Valuables and Belongings I fully understand and agree that [facility] accepts no responsibility for all my personal property including clothing, toilet articles, radios, jewelry, dentures, hearing aids, rings, money, or any other property that is in my possession or is brought to me after admission. I understand certain valuables may be placed in a hospital safe for a short period of time. I understand that the hospital is not liable for loss or damage due to accident, fire, or other natural occurrence while said property is in the safe. I accept full responsibility for any personal property that I keep with me, and will not hold the hospital responsible in case of loss or disappearance. I acknowledge that i have been encouraged to send valuables and belongings home. ? Other Discharge Information ? Pulmonary Rehab Status?? Pulmonary Rehab Discharge Status?? Respiratory Rate: 20 br/min ? Common Emergency Awareness Tips IS IT A STROKE? Act FAST and Check for these signs: FACE Does the face look uneven? ARM Does one arm drift down? SPEECH Does their speech sound strange? TIME Call at any sign of stroke ?? Heart Attack Signs Chest discomfort: Most heart attacks involve discomfort in the center of the chest and lasts more than a few minutes, or goes away and comes back. It can feel like uncomfortable pressure, squeezing, fullness or pain. Discomfort in upper body: Symptoms can include pain or discomfort in one or both arms, back, neck, jaw or stomach. Shortness of breath: With or without discomfort. Other signs: Breaking out in a cold sweat, nausea, or lightheaded. Remember, MINUTES DO MATTER. If you experience any of these heart attack warning signs, call to get immediate medical attention! ?? Smoking can increase your chances of developing chronic health problems and can cause harmful effects to other family members in your house. If you smoke, you are strongly encouraged to quit. Please call [email or web address] Link at [phone] or [phone] ([phone]) or log in to [email or web address] for referrals to smoking cessation programs. ?? 695 Suicide & Crisis Lifeline is available 19/03 if you or someone you know needs to find a reason to keep living. By calling 519 you'll be connected to a skilled, trained counselor at a crisis center in your area. INPATIENT DISCHARGE INSTRUCTIONS SIGNATURE PAGE VAUGHN CRONIN Location:[facility] Registration Date and Time:08/30/2023 18:51 EST Primary Care Physician: Not on Staff, PCP Attending Physician: Roddy STREETER [OB], Ioana Lopez, I VAUGHN CRONIN, have received the above patient education materials/instructions and have verbalized understanding. If ambulance or transport services are being used I further acknowledge being given a choice of service. ?? If you need to contact me, please call me at this number: . Patient/Cardboard Cutter Name: Patient/Cardboard Cutter Signature: Relationship to Patient: Witness Name/Signature: Date: * Chanell Zepeda RN: PERFORM, SIGN, VERIFY Event Display: Patient Education Handout Authored Date: [id number] * Chanell Zepeda RN: PERFORM Event Display: Patient Education Leaflets Authored Date: [id number] Understanding Miscarriage: Recovery ?? 71782 Understanding Miscarriage: Recovery Your body has had a shock to its system. Because of this, you may not feel well for a few days. Your body is going through changes, and you can expect mood swings. When you are ready, start back to your normal routine. Mood swings The miscarriage has caused a sudden drop in your hormone levels. This is likely to produce mood swings or make your emotions even more extreme. Stress and lack of sleep can also affect your moods. Asyour body returns to normal, these mood swings should lessen. ?? Returning to your daily routines You are the best administrative law judge of how you feel. Do only as much as you feel up to. Also be sure to follow your healthcare provider???s directions. Keep the following in mind: ??? Return to work or your dailyroutines when you feel ready. This might be right away, or you may want to wait a few days. ??? Take showers instead of tub baths. This helps prevent infection. Your??healthcare provider will tell you when you can take baths again. ??? Don't do strenuous exercise, such as aerobics or running, untilthe bleeding slows to the rate of a normal period. ??? Wait to have sex, and don???t use tampons until your??healthcare provider says it's OK. ??? Do not douche. ?? Finding support Recognize your need to talk. Ask for support when you want it. And accept help when it???s offered.Although sharing thoughts with your partner is vital, you may also feel like talking with other family members or friends. ?? Look nearby The real experts on miscarriage are the women who have gone through it. Because miscarriage is so common, it???s likely that someone close to you has had one. You may begin to see that you???re not alone in experiencing such a loss. ?? Other sources of support Many women find it easier to talk to people who are not family or friends. If this is true for you,try contacting the following: ??? Share: and Infant Loss Support at www.nationalshare.org??? Resolve Through Sharing at www.bereavementservices.org ??? Loss Support Program at www .pregnancyloss.org ?? When to call the healthcare provider It???s normal to be sad for a while. You may even feel sad until you???re again. Be sure to call your??healthcare provider if either of the following occur: ??? You continue to have no interest in eating or are not able to sleep. ??? Your depression does not decrease. Or you get more upset. ?? Last Reviewed Date: 2022 ?? [employer]. All rights reserved. This information is not intended as a substitute for professional medical care. Always follow your healthcare professional's instructions. ?? * Chanell Zepeda RN: PERFORM Event Display: Patient Education Leaflets Authored Date: [id number] Understanding Miscarriage: Possible Causes ?? 07520 Understanding Miscarriage: Possible Causes Miscarriage is common, but finding its cause may not be easy. If a cause can be found, it???s likely to be a problem with the baby or the uterus or cervix. Other factors cause miscarriage, but they're less common. Problems with the baby Either of these problems with the baby can cause a miscarriage: ??? A problem with the baby???s chromosomes ??? defects ?? Problems with the uterus or cervix Any of these problems with the uterus or cervix can cause a miscarriage: ??? The uterus may be divided (have a septum). Or it may have growths such as fibroids or adhesions. ??? The lining of the uterus may be too thin for the fertilized egg to grow in. ??? The cervix may be too weak to support theweight of a growing baby. ?? Other factors Any of these problems can cause a miscarriage: ??? A serious illness, such as uncontrolled diabetes.? A bad injury, such as from a car accident. ??? Contact with toxins or radiation. ?? What does not cause miscarriage? A lot of myths and old wives??? tales try to explain the cause of miscarriage. But they aren't true. None of these causes miscarriage: ??? Carrying groceries ??? Lifting a small child ??? Wearing high heels ??? Coloring your hair ??? Having sex ??? Vacuuming ??? Working outside the home ??? Being a vegetarian ??? Eating spicy foods ??? Having a Pap test ??? Riding a horse or a bicycle ??? Wishing away or denying a ?? Last Reviewed Date: 2022 ?? [employer]. All rights reserved. This information is not intended as a substitute for professional medical care. Always follow your healthcare professional's instructions. ?? * Chanell Zepeda RN: PERFORM Event Display: Patient Education Leaflets Authored Date: [id number] Understanding Miscarriage: Emotions ?? 21849 Understanding Miscarriage: Emotions Miscarriage is the unplanned end of a before 20 weeks.??When a miscarriage happens, you???re likely to have a wide range of feelings. Let yourself accept how you feel. Only then can you begin to move on. No one is to blame Know that you did not cause this to happen. Miscarriage is very common. There is a 15% chance of miscarriage with each (after has been diagnosed). Miscarriage usually takes place during the first 10 weeks after conception. ?? Grief takes many forms Grief may be the first thing you feel, or it may happen to you later. You may grieve because the future you hoped for feels lost. Grief is painful and often lonely. But??a miscarriage is often easierto deal with over time. ?? What you feel is OK No one can tell you how to respond to your miscarriage. If you've been trying to have a child, thisloss may feel overwhelming. Perhaps this was an unplanned . That doesn???t mean you won???t feel loss. You know yourself best. It???s??OK to feel whatever you feel. ?? A sense of loss No matter what you thought about being , having a miscarriage may cause a sense of loss. You may feel as if something is missing. It???s OK if you can???t describe how you feel. At first, it may be enough just to sit with and feel your emotions. ?? A note for partners Partners grieve, too. You may be feeling sad, helpless, or frustrated. When you???re struggling with your own feelings, knowing how to help your partner may be hard. But do your best to provide support. It can help to: ??? Be kind to yourself and your partner. ??? Spend time together. ??? Fix a meal or bring dinner home. ??? Rent a movie. ??? If you have children, spend extra time with them. ?? Last Reviewed Date: 2022 ?? 9928-4351 [employer]. All rights reserved. This information is not intended as a substitute for professional medical care. Always follow your healthcare professional's instructions. ?? Patient Care team information Care Team Personnel Name: Not on Staff, PCP Position: [facility] Physician (General Medicine) Member Role: PCP Name: Chanell eZpeda RN Position: [facility] OB RN Member Role: OB RN Care Team Related Persons Name: MIRELA CRONIN Address: [place] [address]
--- OUTSIDE RECORDS SUMMARY | 2023-12-17 14:24 | XMS_ITS | Continuity of Care Document ---
Author Organization [facility] Address [address] [place] [id number]- Care Team Providers Care Elementary Art Teacher Name Role Phone Not on Staff, PCP Primary Care Physician Unavail able [facility]counter [facility] [place]): 08/30/23 - 10/05/[address] [address]- Attending Physician: Not on Staff, Attending MD Referring Physician: Ana ASTUDILLO, JUMP IRON MACHINE PRESSER, [place] Allergies, Adverse Reactions, Alerts No Known Allergies [...] tablet, 1 Refills, Maintenance, 08/31/23 3:21:00 EST, [facility], Partial fill upon patient request if [...] Personnel Name: Not on Staff, PCP Position: [facility] Physician (General Medicine) Member Role: PCP Care Team Related Persons Name: CHI CRONINJULIET Address: [address] [address]
== END 2023-12-17 14:53 | disposition home or self-care (01) ==
LOC: HO.HWS 14:22
PROVIDERS: PCP Internal Medicine; Visit Provider Obstetrics & Gynecology
DX: Z01.419 Encounter for gynecological examination (general) (routine) without abnormal findings (principal)
CPT/HCPCS: 99396

== ENCOUNTER → 2023-12-17 14:22 | Outpatient (BNVA) | payer OTHER, SELFPAY | PROVIDERS: PCP Internal Medicine; Visit Provider Obstetrics & Gynecology ==

== ENCOUNTER 2024-02-23 09:34 | Outpatient (REF) | payer OTHER, SELFPAY ==
[2024-02-23 11:00] LABS: Alanine Aminotransferase 13 U/L (0-31); Albumin Level 3.9 g/dL (3.5-5.0); Alkaline Phosphatase 92 U/L (39-117); Anion Gap 15 (12-20); Aspartate Amino Transferase 15 U/L (5-31); Bilirubin Total 0.3 mg/dL (0.0-1.0); Blood Urea Nitrogen 10 mg/dL (9-16); Calcium 9.7 mg/dL (8.4-10.2); Carbon Dioxide 25 mmol/L (22-29); Chloride 109 mmol/L (96-108); Cholesterol 195 mg/dL (<200); Estimated Glomerular Filt Rate > 60; Glucose Fasting 91 mg/dL (60-99); HDL Cholesterol 55 mg/dL (>40); LDL Cholesterol Calculated 122 mg/dL (<100); Potassium 4.9 mmol/L (3.3-5.1); Sodium 144 mmol/L (135-145); Total Protein 7.4 g/dL (6.5-8.0); Triglycerides 90 mg/dL (<150)
== END 2024-02-23 09:35 | disposition home or self-care (01) ==
LOC: HO.LAB 09:34
PROVIDERS: PCP Internal Medicine; Visit Provider Internal Medicine
DX: Z00.00 Encounter for general adult medical examination without abnormal findings (principal); E78.5 Hyperlipidemia, unspecified
CPT/HCPCS: 36415; 80053; 80061

== ENCOUNTER 2024-02-26 17:16 | Outpatient (AMB) | payer OTHER, SELFPAY ==
--- NOTE | 2024-02-26 17:20 | A.OFFPC_ITS ---
Vital Signs 02/26/24 17:23 Height 5 ft 5 in Weight 251 lb 2 oz BMI 41.8 BP 140/86 H Blood Pressure Location Lt brachial Position Sitting Pulse 88 Pulse Source Pulse Oximeter Pulse Oximetry (%) 99 Oxygen Delivery Method Room Air Intake Visit Reasons: Physical Exam Intake Note: Patient is here today for a physical. 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 Accompanied by: Self / Same As Patient Allergies No Known Allergies Allergy (Verified 02/26/24 17:31) Medication List - Last Reconciled 02/26/24 by Maryan Murillo MD prenat.vits,mimi,jlh-[id number]-[id number] 1 tab PO DAILY Tobacco use date assessed: 02/26/24 Dental Screening Dental Screen Date: 02/26/24 Did you have a dental visit in the last 12 months?: Yes Did you have a dental problem in the last 6 months where you did not have access to dental care?: No Was dental information given to patient?: Patient has dentist HPI HPI Comments History of Present Illness Details This is a 43 year old female with morbid obesity that comes for her physical exam. Mammogram done 2023 was normal. Pap smear done 2021 was normal. She has appt for colonoscopy screening this year. No chest pain or shortness o f breath. She is moridly obese and declines weight loss surgery. [facility] Surgical History History of dental surgery Family History Mother Endometrial cancer Diabetes Father Diabetes Hypertension Maternal Grandmother Colon cancer Social History Housing: House Alcohol intake: current Alcohol intake frequency: holidays/special occasions only Alcohol type: wine and other Patient Tobacco Use Status: Never used Tobacco e-Cigarette/Vaping Use: Never Used Second Hand Smoke Exposure: No service: No Current occupational status: employed Current occupational exposures/hazards: No Cognitive needs: No Hearing needs: No Vision needs: Yes Female Reproductive History Menstrual Age of Menarche: 10 Questionnaire PHQ-9 Over the last 2 weeks, how often have you been bothered by any of the following problems? 1. Little interest or pleasure in doing things: not at all 2. Feeling down, depressed, or hopeless: not at all 3. Trouble falling or staying asleep, or sleeping too much: not at all 4. Feeling tired or having little energy: not at all 5. Poor appetite or overeating: not at all 6. Feeling bad about yourself - or that you are a failure or have let yourself or your family down: not at all 7. Trouble concentrating on things, such as reading the newspaper or watching television: not at all 8. Moving or speaking so slowly that other people could have noticed. Or the opposite - being so fidgety or restless that you have been moving around a lot more than usual: not at all 9. Thoughts that you would be better off or of hurting yourself in some way: not at all Total score: 0 Depression Screening Interpretation: Negative Depression Screening Done: Yes [address]393 - PHQ-9 Billing: Yes Source: Developed by Drs. Aquiles Diehl, Eloisa Serra, Emiliano Staley and colleagues, with an educational thalia from [employer]. Thrive Questionnaire Date Thrive assessed: 02/26/24 I am a: Patient What is your living situation today?: I have a steady place to live Within the past 12 months, did the food you bought not last and you didn't have the money to get more?: Never true Within the past 12 months, did you worry whether your food would run out before you got money to buy more?: Never true Do you have trouble paying for medicines?: No Do you have trouble getting transportation to medical appointments?: No Do you have trouble paying your heating and electricity bill?: No Do you have trouble taking care of your child, family member or friend?: No Do you have trouble with day-to-day activities such as bathing, preparing meals, shopping, managing finances, etc.?: No Are you currently unemployed and looking for a job?: No Are you interested in more education?: No Please select the resources that you would like help with: None Currently or been in a relationship where the following occur: No concerns reported THRIVE Score: 0 AUDIT C Alcohol Use Questionnaire (AUDIT-C) 1. How often do you have a drink containing alcohol?: Monthly or less 2. How many drinks containing alcohol do you have on a typical day when you are drinking?: 1 or 2 3. How often do you have six or more drinks on one occasion?: Never Total Score: 1 Score Reviewed/Action Taken: No SILVIA-7 AMB Questionnaire SILVIA-7 Date SILVIA - 7 assessed: 02/26/24 Feeling nervous, anxious, or on edge: 2 = More than half the days Not being able to stop or control worryin = Several days Worrying too much about different things: 1 = Several days Trouble relaxin = Several days Being so restless that it is hard to sit still: 0 = Not at all Becoming easily annoyed or irritable: 0 = Not at all Feeling afraid as if something awful might happen: 1 = Several days Total SILVIA-7 score (0-4 normal; 5-9 mild; 10-14 moderate; 15-21 severe): 6 Source: Developed by Drs. Aquiles Diehl, Eloisa Serra, Emiliano Staley and colleagues, with an educational thalia from [employer]. SILVIA-7 Assessment Billing SILVIA-7 Assessment Tool: SILVIA-7 Assessment 67541 Review of Systems Const All systems reviewed & are unremarkable except as noted in HPI and below Eyes Reports no additional complaints, Denies change in vision and Denies other visual disturbances Card Denies chest pain at rest, Denies chest pain with activity, Denies edema, Denies irregular heart rhythm, Denies claudication, Denies dyspnea, Denies dyspnea on exertion, Denies orthopnea, Denies paroxysmal nocturnal dyspnea and Denies slow heart rate Resp Denies cough, Denies dyspnea and Denies dyspnea on exertion GI Denies abdominal pain, Denies change in bowel habits, Denies excessive flatus, Denies nausea and Denies vomiting Denies urinary incontinence, Denies urinary hesitancy and Denies urinary urgency Physical exam (Primary Care) Vital Signs: Last Vital Signs Pulse 88 02/26/24 17:23 BP 140/86 H 02/26/24 17:23 Pulse Ox 99 02/26/24 17:23 Oxygen Delivery Method Room Air 02/26/24 17:23 BMI result Body Mass Index 41.8 Tobacco/Smoking Status: Tobacco use Status Tobacco use date assessed 02/26/24 02/26/24 17:30 Patient Tobacco Use Status Never used Tobacco 02/26/24 17:20 e-Cigarette/Vaping Use Never Used 02/26/24 17:20 PHQ-9: PHQ-9 Score PHQ-9: Total score 0 02/26/24 17:37 Depression Screening Interpretation: Negative Thrive Assessment: Date of Thrive Assessment Date Thrive assessed 02/26/24 02/26/24 17:30 Currently or been in a relationship where the following occur: No concerns reported Const Orientation/consciousness: patient oriented x3 HENMT Head: Yes normal to inspection, Yes normocephalic and Yes atraumatic Ears: external ears normal Eyes General: appearance normal, both eyes and all related structures Eyelids: Yes eyelids normal Conjunctivae: conjunctivae normal Neck Neck: Yes normal visual inspection and Yes supple Resp Effort & Inspection: normal respiratory effort Auscultation: clear to auscultation bilaterally Cardio Jugular venous distension: no JVD Rate: regular rate Rhythm: regular rhythm Heart sounds: S1 normal heart sound present and S2 normal heart sound present GI Inspection: Yes normal to inspection Palpation (GI): Soft to palpation and nontender Auscultation: normal bowel sounds Skin General skin exam: no rashes or lesions noted Neuro General: patient oriented x3 and no focal motor deficits Extrem General: Yes full ROM Psych Appearance: grossly normal Assessment and Plan Assessment & Plan (1) Physical exam: Code(s): Z00.00 - Encounter for general adult medical examination without abnormal findings Plan: Repeat in a year. (2) Morbid obesity: Code(s): E66.01 - Morbid (severe) obesity due to excess calories Plan: Start diet and exercise. BMI goal is less than 30. Coding Level of Care Code Est Pt Prev Care 40-64y(51557) Diagnoses Physical exam Z00.00 Morbid obesity E66.01 Additional Codes SILVIA-7 Assessment Billing - SILVIA-7 Assessment Tool: SILVIA-7 Assessment 61483 ([id number]) Time Spent (min) 31
[2024-02-26 17:23] VITALS: BP 140/86; PULSE 88; O2SAT 99; BMI 41.8
== END 2024-02-26 17:48 | disposition home or self-care (01) ==
PROVIDERS: PCP Internal Medicine; Visit Provider Internal Medicine
DX: Z00.00 Encounter for general adult medical examination without abnormal findings (principal); E66.01 Morbid (severe) obesity due to excess calories; Z68.41 Body mass index [BMI] 40.0-44.9, adult
CPT/HCPCS: 99396

== ENCOUNTER 2024-04-15 15:06 | Outpatient (AMB) | payer OTHER, SELFPAY ==
--- NOTE | 2024-04-15 15:11 | A.OFFVIS_ITS ---
Vital Signs 04/15/24 15:25 Height 5 ft 5 in Weight 253 lb 1.451 oz BMI 42.1 BP 138/76 Blood Pressure Location Lt brachial Position Sitting Pulse 92 Intake Visit Reasons: Colonoscopy Screening Intake Note: Marilee presents in office today as a new patient for colonoscopy screening. CC: Patient reports getting loose stools about once a week. Denies other GI symptoms today. Mud Analysis Well Logging Captain Required: No Accompanied by: Self / Same As Patient Allergies No Known Allergies Allergy (Verified 04/15/24 15:29) HPI HPI Colonoscopy Screening: Details: 43-year-old female here for preprocedural meeting to discuss a screening colonoscopy. She is referred by Maryan Chowdhury PMX Morbid obesity Spontaneous Uterine myoma * SURGICAL HISTORY Dental surgery * ALLERGIES: NKDA * [employer] LABS: Laboratory Tests 02/23/24 09:56 Estimated GFR > 60 Total Bilirubin 0.3 AST 15 ALT 13 Alkaline Phosphatase 92 TODAY'S VISIT This is her first colonoscopy Some ongoing loose stools with urgency, but intermittent and for now not life limiting. No upper GI problems. She is naive to anesthesia and sedation. She denies any cardiac or respiratory problems NO ID problems. Her maternal grandmother had a partial colectomy in her late 80's due to cancer, Her father had polyps. [facility] Medical History Well woman exam Physical exam Elevated blood pressure reading without diagnosis of hypertension Spotting in first trimester SAB (spontaneous ) Complete High risk case management patient in first trimester Early stage of Surgical History History of dental surgery Family History Mother Endometrial cancer Diabetes Father Diabetes Hypertension Maternal Grandmother Colon cancer Social History Housing: House Alcohol intake: current Alcohol intake frequency: holidays/special occasions only Alcohol type: wine and other Patient Tobacco Use Status: Never used Tobacco e-Cigarette/Vaping Use: Never Used Second Hand Smoke Exposure: No service: No Current occupational status: employed Current occupational exposures/hazards: No Cognitive needs: No Hearing needs: No Vision needs: Yes Female Reproductive History Menstrual Age of Menarche: 10 Review of Systems Const Denies fatigue, Denies fever(s), Denies night sweats, Denies poor appetite and Denies weight loss ENT Reports Normal hearing present, Denies dental pain, Denies dysphagia, Denies hearing loss, Denies mouth pain, Denies odynophagia, Denies throat swelling, Denies tongue swelling and Reports other (Dentition adequate) Card Reports no additional complaints Resp Reports no additional complaints GI Details: Denies abdominal pain, Denies melena, Denies bloating, Denies hematochezia, Denies constipation, Denies GI cramping, Denies dysphagia, Denies excessive flatus, Denies early satiety, Denies heartburn, Denies diarrhea, Reports loose stools, Denies nausea, Denies odynophagia, Denies vomiting and Denies hematemesis Skin/Breast Denies pruritus, Denies lesions, Denies rash and Denies jaundice Neuro Reports Normal hearing present and Denies Abnormal speech present Endo Denies fatigue Aller/Immun Denies throat swelling and Denies tongue swelling Physical Exam Vital Signs: Last Vital Signs Pulse 92 04/15/24 15:25 BP 138/76 04/15/24 15:25 BMI result Body Mass Index 42.1 Const General: cooperative, no acute distress, well developed and well groomed Nutritional Appearance: well nourished and obese Orientation/consciousness: oriented to person, oriented to place and oriented to time Limitations: No language barrier HEENT Head: Yes normocephalic and Yes atraumatic Eyes General: appearance normal, both eyes and all related structures Pupils: Equal, round and reactive pupils present Neck Neck: Yes normal visual inspection and Yes no lymphadenopathy Thyroid: Thyroid normal Resp Effort & Inspection: normal respiratory effort and able to speak in complete sentences Auscultation: clear to auscultation bilaterally Cardio Rate: regular rate Rhythm: regular rhythm Heart sounds: Normal, physiologic split S2 sound present Peripheral pulses: radial pulses present and posterior tibial pulses present GI Inspection: No distended, No Abdominal panniculus present and Yes obesity Palpation (GI): Soft to palpation, nontender, no guarding, not rigid and No hepatosplenomegaly present Percussion: Yes normal to percussion Auscultation: normal bowel sounds Rectal Exam - Female: deferred Skin General skin exam: no rashes or lesions noted, turgor normal, skin not dry, no jaundice, No spider nevi and no striae Rashes: no rashes Nails: normal Neuro General: oriented to person, oriented to place and oriented to time Cranial nerves: Yes Equal, round and reactive pupils present and Yes Normal hearing present Speech: No Abnormal speech present Extrem General: Yes normal to inspection, No clubbing, No cyanosis and No edema Psych Appearance: grossly normal and well kempt Mental Status: mental status grossly normal Speech and movement: Normal speech and movement present Affect: normal affect Attitude: cooperative Thought process: Normal thought process present and not confabulating Thought content: Normal thought content present Insight: Good insight present (Psych) Judgement: Good judgement present (Psych) Assessment & Plan Assessment & Plan (1) Pre-op examination: Code(s): Z01.818 - Encounter for other preprocedural examination Category: Medical Plan This is her first colonoscopy Some ongoing loose stools with urgency, but intermittent and for now not life limiting. No upper GI problems. She is naive to anesthesia and sedation. She denies any cardiac or respiratory problems NO ID problems. Her maternal grandmother had a partial colectomy in her late 80's due to cancer, Her father had polyps. Orders: Orders Colonoscopy - GI Use Only 04/15/24 Medications: New sodium,potassium,mag sulfates 17.5-3.13-1.6 gram (Suprep Bowel Prep Kit) 480 mL orally; FOR COLONOSCOPY PREP 354 mL 0RF Coding Level of Care Code New Pt Level 3 (75971) Diagnoses Pre-op examination Z01.818
[2024-04-15 15:25] VITALS: BP 138/76; PULSE 92; BMI 42.1
== END 2024-04-15 16:00 | disposition home or self-care (01) ==
PROVIDERS: PCP Internal Medicine; Visit Provider Nurse Practitioner
DX: Z01.818 Encounter for other preprocedural examination (principal); Z12.11 Encounter for screening for malignant neoplasm of colon; Z80.0 Family history of malignant neoplasm of digestive organs; Z83.719 Family history of colon polyps, unspecified
CPT/HCPCS: S0285

== ENCOUNTER → 2024-04-15 15:06 | Outpatient (BNVA) | payer OTHER, SELFPAY | PROVIDERS: PCP Internal Medicine; Visit Provider Nurse Practitioner ==

== ENCOUNTER 2024-05-16 15:49 | Outpatient (REF) | payer OTHER, SELFPAY ==
--- NOTE | ~2024-05-16 | MM_ITS ---
EXAMINATION: MM SCREENING DIGITAL BREAST TOMOSYNTHESIS, BILATERAL CLINICAL INFORMATION: Screening. Asymptomatic. COMPARISON: Mammography: Comparison is made with available priors TECHNIQUE: Digital breast mammography with tomosynthesis is performed in both the craniocaudal and mediolateral oblique views along with computer-aided detection (CAD). FINDINGS: There are scattered areas of fibroglandular density (ACR BI-RADS breast composition Category b). There are no significant masses, abnormal calcifications, or other abnormalities. MM/MM tomosynthesis screening BI IMPRESSION: No mammographic evidence of malignancy. ASSESSMENT: BI-RADS BI-RADS 1 - Negative RECOMMENDATION: Routine annual mammography screening. 1 year F/U This examination should not preclude the clinical evaluation of a suspicious palpable abnormality. This patient's information was entered into a reminder system with a target due date for their next mammogram. Electronically signed by: Merry Watters DO 05/29/2024 08:38 AM EDT
== END 2024-05-16 15:50 | disposition home or self-care (01) ==
LOC: HO.MAMMO 15:49
PROVIDERS: PCP Internal Medicine; Visit Provider Internal Medicine
DX: Z12.31 Encounter for screening mammogram for malignant neoplasm of breast (principal)
CPT/HCPCS: 77063; 77067

== ENCOUNTER → 2024-05-16 16:00 | Outpatient (BNV) | payer OTHER, SELFPAY | PROVIDERS: PCP Internal Medicine; Visit Provider Internal Medicine | DX: Z12.31 Encounter for screening mammogram for malignant neoplasm of breast (principal) | CPT/HCPCS: 77063; 77067 ==

== ENCOUNTER 2024-10-03 07:20 | Day surgery (SDC) | payer OTHER, SELFPAY ==
[2024-10-01 13:38] VITALS: BMI 42.1
--- NOTE | 2024-10-02 10:27 | HO.ANESPROP2 ---
HPI - Anesthesia Eval Consult details Narrative: 44yo F for Colonoscopy PMFSH Active Problems Active Problems: All Active Problems Pre-op examination (Acute) Obesity, Class II, BMI 35-39.9 (Acute) Hyperkalemia (Acute) Uterine myoma (Acute) Morbid obesity (Acute) Past Medical History Medical History Well woman exam Physical exam Elevated blood pressure reading without diagnosis of hypertension Spotting in first trimester SAB (spontaneous ) Complete High risk case management patient in first trimester Early stage of Family History Family History Mother Endometrial cancer Diabetes Father Diabetes Hypertension Maternal Grandmother Colon cancer Surgical History Surgical History History of dental surgery Social History Social History Housing: House Alcohol intake: current Alcohol intake frequency: holidays/special occasions only Alcohol type: wine and other Patient Tobacco Use Status: Never used Tobacco e-Cigarette/Vaping Use: Never Used Second Hand Smoke Exposure: No service: No Current occupational status: employed Current occupational exposures/hazards: No Cognitive needs: No Hearing needs: No Vision needs: Yes Meds Allergies Allergy/AdvReac Type Severity Reaction Status Date / Time No Known Allergies Allergy Verified 04/15/24 15:29 Exam Height,Weight and Vital Signs: Height 5 ft 5 in Weight 114.759 kg Assessment and Plan Assessment Anesthesia Assessment: Chart Reviewed
[2024-10-03 08:01] LABS: UPreg QC Valid YES; Urine Pregnancy NEGATIVE (NEGATIVE)
[2024-10-03] MEDS: Lactated Ringers 1,000 ML 100 ML IVCONT (08:05)
[2024-10-03 08:11] VITALS: BMI 42.8
[2024-10-03 08:13] VITALS: BP 144/80; PULSE 105; RESP 18; TEMP 37; O2SAT 98
--- NOTE | 2024-10-03 08:36 | P.HPSUR_ITS ---
Pre-Procedural Eval Section A - 24 Hr Update-Section A only Date of Service: 10/03/24 Section B - Complete if H&P > 30 days Chief Complaint: Encounter for screening for malignant neoplasm of Relevant Family History (Specify if Yes): Yes Relevant Social History: None Present Medications: see Short Stay Collaborative assessment Medical History: Significant History (Morbid obesity Spontaneous Hughes rine myoma) History of Previous Operations: Relevant previous surgery/procedure and date(s) (History of dental surgery) Allergies: Allergies Allergy/AdvReac Type Severity Reaction Status Date / Time No Known Allergies Allergy Verified 10/03/24 08:14 Review of Systems Sugical H&P ROS: Negative: Constitution, Cardiovascular, Respiratory and Gastrointestinal Exam Surgical H&P Exam: Normal: Heart, Normal: Lungs, Normal: Extremities and Normal: Abdomen Plan Diagnosis/Plan: Unchanged I have reviewed the history and physical and performed a pertinent physical examination on my patient. No changes have occurred unless specified. Time Spent With Patient Time: Total time managing care of this patient today ____ minutes.
--- NOTE | 2024-10-03 08:49 | P.CONAN_ITS ---
[facility] Active Problems Active Problems: All Active Problems Pre-op examination (Acute) Obesity, Class II, BMI 35-39.9 (Acute) Hyperkalemia (Acute) Uterine myoma (Acute) Morbid obesity (Acute) Past Medical History Medical History Well woman exam Physical exam Elevated blood pressure reading without diagnosis of hypertension Spotting in first trimester SAB (spontaneous ) Complete High risk case management patient in first trimester Early stage of Functional capacity: independent ambulation Patient : No Family History Family History Mother Endometrial cancer Diabetes Father Diabetes Hypertension Maternal Grandmother Colon cancer Family history of problems with anesthesia: No Surgical History Surgical History History of dental surgery History of Problems with Anesthesia: No Social History Social History Housing: House Are you a primary cardiac care nurse to a significant other at home: No Do you presently have visiting nurse or other home services: No Alcohol intake: current Alcohol intake frequency: holidays/special occasions only Alcohol type: wine and other Patient Tobacco Use Status: Never used Tobacco e-Cigarette/Vaping Use: Never Used Second Hand Smoke Exposure: No Have you been hit, kicked, punched, or otherwise hurt by someone within the past year? If so, by whom?: No Are you DNR?: No Advance Directives: No Advance Directives Information Provided: Yes Recently lost weight without trying: No Nutrition Risks: No Nutritional Risk FDLMP: 09/25/24 service: No Current occupational status: employed Current occupational exposures/hazards: No Cognitive needs: No Hearing needs: No Vision needs: Yes Meds Allergies Allergy/AdvReac Type Severity Reaction Status Date / Time No Known Allergies Allergy Verified 10/03/24 08:14 Active Medications: Current Medications Lactated Ringer's (Lr) 1,000 mls @ 100 mls/hr IVCONT .Q10H JUAN Last Admin: 10/03/24 08:05 Dose: 100 mls/hr Home Medications ?Medication ?Instructions ?Recorded ?Confirmed ?Last Taken ?Type No Known Home Meds 10/03/24 10/03/24 Unknown History Exam Height,Weight and Vital Signs: Height 5 ft 5 in Weight 116.573 kg Last Vital Signs Temp 98.6 F 10/03/24 08:13 Pulse 105 H 10/03/24 08:13 Resp 18 10/03/24 08:13 BP 144/80 H 10/03/24 08:13 Pulse Ox 98 10/03/24 08:13 Pertinent Lab Results Pertinent Lab Results: Laboratory Tests 10/03/24 07:56 Urine Test NEGATIVE Airway Mallampati Class: III TM Dist: >3cm Neck ROM: Full Heart: RRR Lungs: CTA Assessment and Plan Assessment Anesthesia Assessment: Anesthesia Plan Discussed and Chart Reviewed Final Anesthetic Review Family History of Problems with Anesthesia: No History of Problems with Anesthesia: No NPO: Yes ASA Class: III Final Preanesthetic Review: Meds/Allgs Chart Reviewed, Consent Obtained/Reviewed and Anes Risks/Benef Reviewed Patient Risk: Low Procedure Risk: Low Anesthetic Plan Anesthetic Plan: MAC: Disposition: Standard PACU
--- NOTE | 2024-10-03 09:51 | P.OPN-COLO_ITS ---
Colonoscopy Operative Note Operative Note Date of Service: 10/03/24 Narrative: COLONOSCOPY TILL CECUM WITH BIOPSIES Pre-op diagnosis: Colon cancer screening (First colon). Post-op diagnosis:? Colon polyp, Diverticulosis, hemorrhoids Endoscopist:? Alesha Coffman MD Anesthesia:?MAC Consent: Indications for the procedure and potential complications of bleeding, perforation, reaction to medications and missed diagnosis were discussed with the patient and informed consent was obtained. Instrument: Olympus PCF H 190 L variable stiffness pediatric colonoscope Monitoring: Vital signs and clinical assessment, intermittent blood pressure monitoring, continuous EKG monitoring, Pulse oximetry and Carbon Dioxide monitoring were done throughout the procedure. Please see anesthesia flowsheet. Colon withdrawl time was 17 minutes. Procedure: The patient was placed in the left lateral decubitis position and pre-procedure medications were administered. After a digital rectal examination of the ano-rectum, the video colonoscope was inserted into the rectum and advanced through the colon to the cecum. The colonoscope was slowly withdrawn in a retrograde panoramic fashion and the colon mucosa was carefully examined including a retroflexed view of the rectum. Findings and interventions are described below. Procedure Difficulty: without difficulty Findings: Terminal Ileum: Not evaluated Cecum: Normal Ascending Colon: Normal Transverse Colon: A 3-4 mm diminutive appearing polyp - removed with a cold biopsy. Descending Colon: Moderate diverticulosis Sigmoid Colon: Moderate diverticulosis Rectum: Normal Ano-rectum: Small internal hemorrhoids Colon preparation: Good after copious irrigation. Carnation Bowel Preparation Scale Right colon; 2 Transverse colon: 2 Left colon; 2 (0 = Unprepared colon segment with mucosa not seen due to solid stool that cannot be cleared. 1 = Portion of mucosa of the colon segment seen, but other areas of the colon segment not well seen due to staining, residual stool and/or opaque liquid. 2 = Minor amount of residual staining, small fragments of stool and/or opaque liquid, but mucosa of colon segment seen well. 3 = Entire mucosa of colon segment seen well with no residual staining, small fragments of stool or opaque liquid) Impression and Post Procedure Diagnosis: Colonoscopy Findings: One tiny polyp was removed Moderate diverticulosis seen in the left colon Small hemorrhoids on retroflexed exam. Plan: Pt has a FU appointment on 10/17/24 with Rita Villalta NP. Repeat Colonoscopy in 5 years if polyps are adenomatous and 10 year if polyps are hyperplastic. Above findings were reviewed with the patient and relevant handouts were given and the discharge area.
[2024-10-03 09:53] VITALS: BP 87/47; PULSE 106; RESP 16; TEMP 36.1; O2SAT 98
[2024-10-03 10:08] VITALS: BP 130/74; PULSE 88; RESP 18; TEMP 36.1; O2SAT 98
--- NOTE | 2024-10-03 11:03 | HO.POSTANES ---
Post Anesthesia Evaluation Post Anesthesia Evaluation Date of Service: 10/03/24 Vital Signs: Vital Signs Temp Pulse Resp BP Pulse Ox O2 Del Method 10/03/24 10:08 97 F 88 18 130/74 98 Room Air 10/03/24 09:53 97 F 106 H 16 87/47 L 98 Room Air 10/03/24 08:13 98.6 F 105 H 18 144/80 H 98 Anesthesia: Monitored Mental Status: Awake Pain Control: Satisfactory Nausea/Vomiting: None Hydration: Adequate Anesthesia-Related Issues: No Anes. Related Issues
== END 2024-10-03 10:47 | disposition home or self-care (01) ==
PROVIDERS: Nurse Practitioner; PCP Internal Medicine; Visit Provider Internal Medicine Gastroenterology
PROC: 0DJD8ZZ Inspection of Lower Intestinal Tract, Via Natural or Artificial Opening Endoscopic (ICD-10-PCS; CPT 45378; principal; 2024-10-03 09:20)
DX: Z12.11 Encounter for screening for malignant neoplasm of colon (principal); D12.3 Benign neoplasm of transverse colon; K57.30 Diverticulosis of large intestine without perforation or abscess without bleeding; K64.8 Other hemorrhoids; D25.9 Leiomyoma of uterus, unspecified; E66.01 Morbid (severe) obesity due to excess calories; Z68.41 Body mass index [BMI] 40.0-44.9, adult
CPT/HCPCS: 45380; 81025; 88305; J2003; J2704

== ENCOUNTER 2024-12-31 11:48 | Outpatient (AMB) | payer OTHER, SELFPAY ==
--- NOTE | 2024-12-31 11:55 | MHC.OFFVIS ---
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 No complaints. Last Pap/HPV was negative in 09/17 Last Mammogram was BI-RADS 1 in 05/20 Last colonoscopy was in 10/21 [facility] Medical History Well woman exam Physical exam Elevated blood pressure reading without diagnosis of hypertension Spotting in first trimester SAB (spontaneous ) Complete High risk case management patient in first trimester Early stage of Surgical History History of dental surgery Family History Mother Endometrial cancer Diabetes Father Diabetes Hypertension Maternal Grandmother Colon cancer Social History Housing: House Are you a primary healthcare sales representative to a significant other at home: No Do you presently have visiting nurse or other home services: No Alcohol intake: current Alcohol intake frequency: holidays/special occasions only Alcohol type: wine and other Patient Tobacco Use Status: Never used Tobacco e-Cigarette/Vaping Use: Never Used Second Hand Smoke Exposure: No service: No Current occupational status: employed Current occupational exposures/hazards: No Cognitive needs: No Hearing needs: No Vision needs: Yes Female Reproductive History Menstrual Age of Menarche: 10 Date of last menstrual period: 12/16/24 Date of last pap smear: 08/30/21 Date of Mammogram: 05/16/24 Review of Systems Const All systems reviewed & are unremarkable except as noted in HPI and below Card Reports as per HPI Resp Reports as per HPI GI Reports as per HPI and Reports no additional complaints Reports as per HPI Physical Exam Const General: cooperative, healthy appearing and comfortable Chest Chest palpation & inspection: normal inspection of the chest and normal palpation of entire chest wall Breast/axilla inspection: normal inspection of the breasts and normal inspection of the axillae Breast/axilla palpation: normal palpation of the breasts, normal palpation of the axillae and no axillary lymphadenopathy Resp Effort & Inspection: normal respiratory effort Auscultation: clear to auscultation bilaterally Percussion: percussion normal Cardio Palpation: normal PMI Rate: regular rate Rhythm: regular rhythm Heart sounds: no murmurs and no rubs Peripheral pulses: Peripheral pulses 2+ throughout GI Inspection: Yes normal to inspection Palpation (GI): Soft to palpation, nontender, no guarding, not rigid and No hepatosplenomegaly present Percussion: Yes normal to percussion Auscultation: normal bowel sounds Rectal Exam - Female: deferred General: Yes bladder normal to palpation External Female Exam: No lesion Speculum Exam - Vagina: normal appearance of the vagina, normal palpation, normal vaginal discharge and not erythematous Speculum Exam - Cervix: normal appearance of the cervix and normal palpation Bimanual exam- vagina & uterus: normal bimanual exam, normal palpation, uterine size normal, bladder normal to palpation, consistency normal and normal palpation Bimanual Exam- Adnexa, other: normal adnexae, no masses and no tenderness Assessment & Plan Assessment & Plan (1) Well woman exam: Code(s): Z01.419 - Encounter for gynecological examination (general) (routine) without abnormal findings Category: Medical Plan: Cotesting not indicated this year. Instructions given the patient to schedule next screening Mammogram in 05/21. Counseled the patient about the recommended dietary allowance of 1000 mg of Calcium & 600 IU of vitamin D. The patient was instructed to perform monthly self-breast exams and to schedule an annual exam in a year; All questions answered and the patient verbalized understanding. Instructed the patient to schedule annual exam in a year Coding Level of Care Code Est Pt Prev Care 40-64y(84649) Diagnoses Well woman exam Z01.419
[2024-12-31 12:07] VITALS: BP 136/94; BMI 42.9
== END 2024-12-31 14:14 | disposition home or self-care (01) ==
LOC: HO.HWS 11:48
PROVIDERS: PCP Internal Medicine; Visit Provider Obstetrics & Gynecology
DX: Z01.419 Encounter for gynecological examination (general) (routine) without abnormal findings (principal)
CPT/HCPCS: 99396; 99459

== ENCOUNTER → 2024-12-31 11:48 | Outpatient (BNVA) | payer OTHER, SELFPAY | PROVIDERS: PCP Internal Medicine; Visit Provider Obstetrics & Gynecology ==

== ENCOUNTER 2025-02-16 07:51 | Outpatient (RCR) | payer OTHER, SELFPAY ==
--- NOTE | 2025-01-21 12:52 | MHC.PT.EP ---
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 OBJECTIVE FINDINGS INCLUDE: POOR POSTURE AWARENESS, STRENGTH DEFICITS IN LUMBOPELVIC/ PROX LEs, (+) PELVIC ASYMM W MECHANICAL LLI EFFECT, (+) SOFT TISSUE TENSION Rt QL/ LUMBAR PS MM, AND FLUCTUATING PAIN IN HER LB. FUNCTONALLY, SHE IS LIMITED WITH TRANSITIONAL MVMTS AND TURNING IN BED. THE Pt WOULD BENEFIT FROM PT TO ADDRESS THE ABOVE -APPEARS TO BE A POSTURAL SYNDROME W MECHANICAL INFLUENCE. Frequency and Duration: The patient will be seen 2 x WK x 4 WKS Short Term Goals: *DECR LBP TO 2-3/10 AT MAX *INITIATE HEP-> Rt QL, CORE STAB PROGR *Pt INDEP SELF CORRECTION POSTURE Mcc Goals: *Pt INDEP W HEP AND SELF SX MGMT TECHN *IMPROVED CORE ENGAGEMENT EVIDENT W WFL LUMBOPELVIC SYMM *Pt DEMON PROPER BODY MECH W 3:3 SIMUL ADLs *IMPROVED OSWESTRY SCORE, AT EVAL Treatment Plan: Modalities to reduce pain, spasms and effusion. Manual therapy to restore motion and function. Therapeutic exercise to improve strength and flexibility. Neuromuscular re-education for posture and balance. Therapeutic activities to return to functional activities of daily living. Electronically signed by: ELIGIO BRAND, PT Please sign and return to therapist. Thank you for your referral.
--- NOTE | 2025-02-16 10:42 | MHC.PT.DC ---
[facility] [place] Office [place] Office [place] Office [address] Raymond Han [address] [phone] F: [phone] F: [phone] F: [phone] F: [phone] Physical Therapy Discharge Report Diagnosis: DORSALGIA- BACK PAIN Date of Surgery: Date of Evaluation: 01/21/25 Date of Discharge: 02/16/25 Treatments to Date: 8 Cancellations to Date: No Shows to Date: Discharge Status: Achieved Goals Improved Function Independent with HEP Discharge Summary: VAUGHN HAS PROGRESSED NICELY IN PT- SHE HAS MET HER PT GOALS AND HAS RESUMED REG ADLs W/O EXACERBATING SXS. SHE HAS IMPROVED STRENGTH AND MORE EFFICIENT BODY MECHANICS. HER OSWESTRY AT D/C IS 1/50 AND AT EVAL WAS 28/50. Electronically signed by: ELIGIO BRAND,PT Please sign and return to therapist. Thank you for your referral.
== END 2025-02-16 10:43 | disposition home or self-care (01) ==
LOC: HO.PT 07:51
PROVIDERS: PCP Internal Medicine; Visit Provider Internal Medicine
DX: M54.9 Dorsalgia, unspecified (principal)
CPT/HCPCS: 97110; 97162; 97530

== ENCOUNTER 2025-03-04 17:04 | Outpatient (AMB) | payer OTHER, SELFPAY ==
--- NOTE | 2025-03-04 17:18 | A.OFFPC_ITS ---
Vital Signs 03/04/25 17:19 Height 5 ft 5 in Weight 257 lb BMI 42.8 BP 136/80 Blood Pressure Location Lt brachial Position Sitting Intake Visit Reasons: annual exam Intake Note: Patient here for an annual physical exam [employer] Operations [employer] Training Required: No Accompanied by: Self / Same As Patient Allergies No Known Allergies Allergy (Verified 03/04/25 17:35) Medication List - Last Reconciled 03/04/25 by Maryan Murillo MD No Known Home Meds Tobacco use date assessed: 02/26/24 Dental Screening Dental Screen Date: 03/04/25 Did you have a dental visit in the last 12 months?: Yes Did you have a dental problem in the last 6 months where you did not have access to dental care?: No Was dental information given to patient?: Patient has dentist HPI HPI Comments History of Present Illness Details The patient is a 44-year-old female presenting for a physical exam and preventative care. She has a history of morbid obesity with a BMI of 42.8 and has been advised to engage in diet and exercise. She declines bariatric surgery or referral to weight management. The patient reports right foot pain that began a few months ago, occurring both at rest and while walking. She denies any previous trauma to the area and reports no deformity, but describes the pain as sometimes burning. An x-ray has been ordered to rule out a spur or bone abnormality. She denies any chest pain, shortness of breath, or changes in bowel or bladder habits. She does not take any medications and has no allergies. Her family history includes diabetes and endometrial cancer in her mother, and diabetes and hypertension in her father. Her PHQ-9 score is 1, indicating no depression, but she has slight anxiety with a SILVIA-7 score of 9, which she manages independently. - Tdap vaccination administered - Mammogram in April was normal - Colonoscopy in September was normal; ne xt due in 2034 - Pap smear in 2021 was negative for HPV ; next due in 2026 [facility] Medical History (Updated 03/04/25 @ 20:19 by Maryan Murillo MD) Physical exam Obesity, Class II, BMI 35-39.9 Well woman exam Elevated blood pressure reading without diagnosis of hypertension Spotting in first trimester SAB (spontaneous ) Complete High risk case management patient in first trimester Early stage of Surgical History History of colonoscopy History of dental surgery Family History Mother Endometrial cancer Diabetes Father Diabetes Hypertension Maternal Grandmother Colon cancer Social History Housing: House Are you a primary career technical counselor to a significant other at home: No Do you presently have visiting nurse or other home services: No Alcohol intake: current Alcohol intake frequency: holidays/special occasions only Alcohol type: wine and other Patient Tobacco Use Status: Never used Tobacco e-Cigarette/Vaping Use: Never Used Second Hand Smoke Exposure: No service: No Current occupational status: employed Current occupational exposures/hazards: No Cognitive needs: No Hearing needs: No Vision needs: Yes Female Reproductive History Menstrual Age of Menarche: 10 Questionnaire PHQ-9 Over the last 2 weeks, how often have you been bothered by any of the following problems? 1. Little interest or pleasure in doing things: not at all 2. Feeling down, depressed, or hopeless: not at all 3. Trouble falling or staying asleep, or sleeping too much: not at all 4. Feeling tired or having little energy: not at all 5. Poor appetite or overeating: several days 6. Feeling bad about yourself - or that you are a failure or have let yourself or your family down: not at all 7. Trouble concentrating on things, such as reading the newspaper or watching television: not at all 8. Moving or speaking so slowly that other people could have noticed. Or the opposite - being so fidgety or restless that you have been moving around a lot more than usual: not at all 9. Thoughts that you would be better off or of hurting yourself in some way: not at all Total score: 1 Depression Screening Interpretation: Negative Depression Screening Done: Yes 82406 - PHQ-9 Billing: Yes Source: Developed by Drs. Aquiles Diehl, Eloisa Serra, Emiliano Staley and colleagues, with an educational thalia from [employer]. Thrive Questionnaire Date Thrive assessed: 03/02/25 I am a: Patient What is your living situation today?: I have a steady place to live Within the past 12 months, did the food you bought not last and you didn't have the money to get more?: Never true Within the past 12 months, did you worry whether your food would run out before you got money to buy more?: Never true Do you have trouble paying for medicines?: No Do you have trouble getting transportation to medical appointments?: No Do you have trouble paying your heating and electricity bill?: I choose not to answer this question Do you have trouble taking care of your child, family member or friend?: I choose not to answer this question Do you have trouble with day-to-day activities such as bathing, preparing meals, shopping, managing finances, etc.?: No Are you currently unemployed and looking for a job?: No Are you interested in more education?: No Please select the resources that you would like help with: None Currently or been in a relationship where the following occur: No concerns repo rted THRIVE Score: 0 AUDIT C Alcohol Use Questionnaire (AUDIT-C) 1. How often do you have a drink containing alcohol?: Monthly or less 2. How many drinks containing alcohol do you have on a typical day when you are drinking?: 1 or 2 3. How often do you have six or more drinks on one occasion?: Never Total Score: 1 Score Reviewed/Action Taken: No SILVIA-7 AMB Questionnaire SILVIA-7 Date SILVIA - 7 assessed: 03/04/25 Feeling nervous, anxious, or on edge: 2 = More than half the days Not being able to stop or control worryin = Several days Worrying too much about different things: 2 = More than half the days Trouble relaxin = Not at all Being so restless that it is hard to sit still: 1 = Several days Becoming easily annoyed or irritable: 1 = Several days Feeling afraid as if something awful might happen: 2 = More than half the days Total SILVIA-7 score (0-4 normal; 5-9 mild; 10-14 moderate; 15-21 severe): 9 Source: Developed by Drs. Aquiles Diehl, Eloisa Serra, Emiliano Staley and colleagues, with an educational thalia from [employer] SILVIA-7 Assessment Billing SILVIA-7 Assessment Tool: SILVIA-7 Assessment 39772 Review of Systems Const All systems reviewed & are unremarkable except as noted in HPI and below Card Denies chest pain at rest, Denies chest pain with activity, Denies edema, Denies irregular heart rhythm, Denies claudication, Denies dyspnea, Denies dyspnea on exertion, Denies orthopnea, Denies paroxysmal nocturnal dyspnea and Denies slow heart rate Resp Denies cough, Denies dyspnea and Denies dyspnea on exertion GI Denies abdominal pain, Denies change in bowel habits, Denies excessive flatus, Denies nausea and Denies vomiting Denies urinary incontinence, Denies urinary hesitancy and Denies urinary urgency Musc Denies abnormal gait, Denies atrophy, Denies deformity and Denies limited range of motion Skin/Breast Denies bleeding lesions, Denies changing lesions and Denies rash Neuro Denies abnormal gait, Denies behavioral changes, Denies confusion and Denies lack of coordination Psych Denies behavioral changes and Denies confusion Physical exam (Primary Care) Vital Signs: Last Vital Signs BP 136/80 03/04/25 17:19 BMI result Body Mass Index 42.8 BMI Assessment/Plan discussion: High BMI High, discussed plan: lifestyle, weight reduction, dietary and physical activity Tobacco/Smoking Status: Tobacco use Status Tobacco use date assessed 02/26/24 03/04/25 17:28 Patient Tobacco Use Status Never used Tobacco 03/04/25 17:28 e-Cigarette/Vaping Use Never Used 03/04/25 17:28 PHQ-9: PHQ-9 Score PHQ-9: Total score 1 03/04/25 17:52 Depression Screening Interpretation: Negative Thrive Assessment: Date of Thrive Assessment Date Thrive assessed 03/02/25 03/04/25 17:28 Currently or been in a relationship where the following occur: No concerns reported Const General: No confusion Orientation/consciousness: patient oriented x3 and No confusion HENMT Head: Yes normal to inspection, Yes normocephalic and Yes atraumatic Ears: external ears normal Eyes General: appearance normal, both eyes and all related structures Eyelids: Yes eyelids normal Conjunctivae: conjunctivae normal Neck Neck: Yes normal visual inspection and Yes supple Resp Effort & Inspection: normal respiratory effort Auscultation: clear to auscultation bilaterally Cardio Jugular venous distension: no JVD Rate: regular rate Rhythm: regular rhythm Heart sounds: S1 normal heart sound present and S2 normal heart sound present GI Inspection: Yes normal to inspection Palpation (GI): Soft to palpation and nontender Auscultation: normal bowel sounds Skin General skin exam: no rashes or lesions noted Neuro General: patient oriented x3, no focal motor deficits and No confusion Extrem General: Yes full ROM Psych Appearance: grossly normal Immunizations Boostrix Tdap 2.5 Lf unit-8 mcg-5 Lf/0.5 mL intramuscular syringe Performing Provider: Maryan Murillo MD [facility] Administered by: JUAN A Menjivar on 03/04/25 17:55 Dose Route Admin Location Dispensed Lot Number Expiration Date NDC Technical Specialist Cytology 0.5 mL IM Left Deltoid 0.5 mL [id number] 10/17/26 [id number] [employer] Total Dispensed Waste 0.5 mL 0 % VIS Given Date VIS Provided VIS Publication Date 03/04/25 Single Vaccine 24 Eligibility Eligibility Date Funding Source Not [facility] Eligible 03/04/25 Private Coding Level of Care Code Est Pt Level 3 (72489) Est Pt Prev Care 40-64y(67842) Diagnoses Physical exam Z00.00 Morbid obesity E66.01 Right ankle pain M25.571 Additional Codes SILVIA-7 Assessment Billing - SILVIA-7 Assessment Tool: SILVIA-7 Assessment 20493 ([id number]) PHQ-9 - 63728 - PHQ-9 Billing: Yes ([id number]) Time Spent (min) 31 Assessment & Plan Assessment & Plan (1) Physical exam: Code(s): Z00.00 - Encounter for general adult medical examination without abnormal findings Category: Medical (2) Morbid obesity: Code(s): E66.01 - Morbid (severe) obesity due to excess calories Category: Medical (3) Right ankle pain: Code(s): M25.571 - Pain in right ankle and joints of right foot Category: Medical Plan The patient will receive a Tdap vaccination today as part of her preventative care measures. An x-ray of the right foot will be ordered to evaluate for any b one abnormalities or spurs due to the reported pain. The patient has been advised to engage in diet and exercise to address her morbid obesity, although she declines bariatric surgery or weight management referrals. I discussed with the patient the importance of receiving the Tdap vaccination today as part of her preventative care. We also talked about the need for an x- ray to assess her right foot pain, considering the possibility of a bone spur or abnormality. I advised her on the benefits of diet and exercise for managing her obesity, although she is not interested in surgical or weight management interventions at this time. Orders: Orders Lipid Panel Today E66.01 - Morbid (severe) obesity due to excess calories, E78.5 - Hyperlipidemia, unspecified Comprehensive [place]. Panel Fast Today E66.01 - Morbid (severe) obesity due to excess calories XR ankle RT 2V Today M25.571 - Pain in right ankle and joints of right foot TDaP Immunization Today Z23 - Encounter for immunization Patient Instructions: - Receive Tdap vaccination today. - Follow up with an x-ray for right foot pain. - Engage in regular diet and exercise to manage weight.
[2025-03-04 17:19] VITALS: BP 136/80; BMI 42.8
== END 2025-03-04 17:51 | disposition home or self-care (01) ==
LOC: HO.HMCH 17:05
PROVIDERS: PCP Internal Medicine; Visit Provider Internal Medicine
DX: Z00.00 Encounter for general adult medical examination without abnormal findings (principal); E66.01 Morbid (severe) obesity due to excess calories; Z68.41 Body mass index [BMI] 40.0-44.9, adult; M25.571 Pain in right ankle and joints of right foot; Z23 Encounter for immunization

== ENCOUNTER → 2025-03-04 17:04 | Outpatient (BNVA) | payer OTHER, SELFPAY | PROVIDERS: PCP Internal Medicine; Visit Provider Internal Medicine | DX: Z00.00 Encounter for general adult medical examination without abnormal findings (principal); Z23 Encounter for immunization; E66.01 Morbid (severe) obesity due to excess calories; Z68.41 Body mass index [BMI] 40.0-44.9, adult; M25.571 Pain in right ankle and joints of right foot; Z13.30 Encounter for screening examination for mental health and behavioral disorders, unspecified; Z13.31 Encounter for screening for depression | CPT/HCPCS: 90471; 90715; 96127 ==

== ENCOUNTER 2025-04-17 08:08 | Outpatient (REF) | payer OTHER, SELFPAY ==
--- NOTE | ~2025-04-17 | XR_ITS ---
EXAMINATION: XR ANKLE, RIGHT CLINICAL INFORMATION: M25.571 - Pain in right ankle and joints of right foot COMPARISON: None available. TECHNIQUE: AP, lateral, and mortise views of the right ankle. FINDINGS: Normal alignment. Ankle mortise is maintained. No acute fracture. Small well-corticated ossific structure distal to the medial malleolus appears to represent chronic avulsive fracture fragment. Moderate size plantar calcaneal spur. Soft tissue swelling over the medial ankle. XR/XR ankle RT min 3V IMPRESSION: 1. Suggestion of chronic avulsion fracture fragment distal to the medial malleolus. 2. No definite acute fracture lines. 3. No dislocation. Electronically signed by: Torres Roa MD 04/17/2025 09:08 AM EDT
[2025-04-17 09:22] LABS: Alanine Aminotransferase 16 U/L (0-31); Albumin Level 3.9 g/dL (3.5-5.0); Alkaline Phosphatase 98 U/L (39-117); Anion Gap 13 (12-20); Aspartate Amino Transferase 28 U/L (5-31); Blood Urea Nitrogen 10 mg/dL (9-16); Calcium 9.3 mg/dL (8.4-10.2); Carbon Dioxide 22 mmol/L (22-29); Chloride 109 mmol/L (96-108); Cholesterol 200 mg/dL (<200); Estimated Glomerular Filt Rate > 60; HDL Cholesterol 51 mg/dL (>40); Potassium 4.9 mmol/L (3.3-5.1); Sodium 139 mmol/L (135-145); Total Protein 7.6 g/dL (6.5-8.0); Triglycerides 121 mg/dL (<150)
== END 2025-04-17 08:09 | disposition home or self-care (01) ==
LOC: HO.LAB 08:08
PROVIDERS: PCP Internal Medicine; Visit Provider Internal Medicine
DX: M25.571 Pain in right ankle and joints of right foot (principal); E66.01 Morbid (severe) obesity due to excess calories; E78.5 Hyperlipidemia, unspecified
CPT/HCPCS: 36415; 73610; 80053; 80061

== ENCOUNTER → 2025-04-17 08:33 | Outpatient (BNV) | payer OTHER, SELFPAY | PROVIDERS: PCP Internal Medicine; Visit Provider Radiology Body Imaging | DX: M70.871 Other soft tissue disorders related to use, overuse and pressure, right ankle and foot (principal) | CPT/HCPCS: 73610 ==

== ENCOUNTER 2025-05-22 15:49 | Outpatient (REF) | payer OTHER, SELFPAY ==
--- NOTE | ~2025-05-22 | MM_ITS ---
EXAMINATION: MM SCREENING DIGITAL BREAST TOMOSYNTHESIS, BILATERAL CLINICAL INFORMATION: Screening. Asymptomatic. COMPARISON: Comparison made to multiple prior, most recent May 16, 2024, and most remote December 06, 2018. TECHNIQUE: Digital breast tomosynthesis is performed in mediolateral oblique and craniocaudal views along with computer-aided detection (CAD). Synthesized 2D images are generated from the tomosynthesis. FINDINGS: BREAST COMPOSITION: There are scattered areas of fibroglandular density. BILATERAL BREASTS: No significant masses, suspicious calcifications or other abnormalities are seen in either breast. MM/MM tomosynthesis screening BI IMPRESSION: BILATERAL BREASTS: Negative, no mammographic evidence of malignancy. Normal interval follow-up is recommended in 12 months. ASSESSMENT: BI-RADS: Category 1: Negative RECOMMENDATION: Routine annual mammography screening. FOLLOW-UP: 1 year F/U This examination should not preclude the clinical evaluation of a suspicious palpable abnormality. This patient's information was entered into a reminder system with a target due date for their next mammogram. Electronically signed by: Torres Roa MD 05/26/2025 07:25 AM EDT
== END 2025-05-22 15:50 | disposition home or self-care (01) ==
LOC: HO.MAMMO 15:49
PROVIDERS: PCP Internal Medicine; Visit Provider Internal Medicine
DX: Z12.31 Encounter for screening mammogram for malignant neoplasm of breast (principal)
CPT/HCPCS: 77063; 77067

== ENCOUNTER → 2025-05-22 16:00 | Outpatient (BNV) | payer OTHER, SELFPAY | PROVIDERS: PCP Internal Medicine; Visit Provider Radiology Body Imaging | DX: Z12.31 Encounter for screening mammogram for malignant neoplasm of breast (principal) | CPT/HCPCS: 77063; 77067 ==